=== PATIENT | male | born 1935 | race African-American/Black ===

== ENCOUNTER 2021-01-19 13:26 | Inpatient (IN) | payer MEDICARE, OTHER ==
[2021-01-19] VITALS (12 sets, daily range): BP systolic 118–144; BP diastolic 60–83
[~2021-01-19] VITALS: Ht 175.3 cm; Wt 75.4 kg
[~2021-01-19 13:26] MED LIST: BABY81CH OR; FISH1000 PO; FLOM0.4C39 PO; GLYB1TAB29 PO; HYDR25TA6 PO; LISI40TA PO; LOPR50TA OR; METF500T4 PO; METOPROLOL TARTRATE PO; MULTIVIT PO; PERC5TAB8 OR; PLAV75TA2 PO; PROS5TAB PO; TRAM50TA2 PO; ZOCO40TA OR
--- OUTSIDE RECORDS SUMMARY | 2021-01-19 13:30 | CCD ---
Author Author [facility] Address Unknown Phone Unavailable Support Name Relationship Address Phone RE Next Of Kin Unknown Unavailable DREAD COLES Next Of Kin [address] [place] [address] INDERJIT COLES Next Of Kin [address] [place] [address] Re-disclosure Warning The records that you are about to access may contain information from federally-assisted alcohol or drug abuse programs. If such information is present, then the following federally mandated warning applies: This information has been disclosed to you from records protected by federal confidentiality rules (42 CFR part 2). The federal rules prohibit you from making any further disclosure of this information unless further disclosure is expressly permitted by the written consent of the person to whom it pertains or as otherwise permitted by 42 CFR part 2. A general authorization for the release of medical or other information is NOT sufficient for this purpose. The Federal rules restrict any use of the information to criminally investigate or prosecute any alcohol or drug abuse patient.The records that you are about to access may contain highly sensitive health information, the redisclosure of which is protected by Article 27-F of the [facility] Public Health law. If you continue you may have access to information: Regarding HIV / AIDS; Provided by facilities licensed or operated by the [facility] Office of Mental Health; or Provided by the [facility] Office for People With Developmental Disabilities. If such information is present, then the following [facility] mandated warning applies: This information has been disclosed to you from confidential records which are protected by state law. State law prohibits you from making any further disclosure of this information without the specific written consent of the person to whom it pertains, or as otherwise permitted by law. Any unauthorized further disclosure in violation of state law may result in a fine or residential sentence or both. A general authorization for the release of medical or other information is NOT sufficient authorization for further disc losure. Medications No Information Insurance Providers Payer name Policy type / Coverage type Policy ID Covered democrat ID Covered democrat's relationship to escobar Policy Escobar Plan Information FOR LIFE [id number] MEDICARE [id number] A Problems, Conditions, and Diagnoses No Information Surgeries/Procedures No Information Results No Information Social History No Information
[2021-01-19 14:11] LABS: VENOUS HCO3 11.6 MEQ/L (23.0-27.0); VENOUS O2 SATURATION 76.2 % (60.0-80.0); VENOUS PARTIAL PRESSURE CO2 30.1 mmHg (38.0-50.0); VENOUS PARTIAL PRESSURE O2 53.2 mmHg (30.0-50.0); VENOUS PH 7.203 UNITS (7.330-7.430); VENOUS STANDARD HCO3 12.2 MEQ/L; VENOUS TOTAL CO2 12.5 MEQ/L (24.0-28.0)
[2021-01-19 14:20] LABS: BASO % 0.3 % (0.0-1.0); EOS % 0.1 % (0.0-3.0); LYMPH # 0.5 10^3/uL (1.5-5.0); LYMPH % 6.2 % (24.0-44.0); MEAN CORPUSCULAR HEMOGLOBIN 17.6 pg (27.0-33.0); MEAN CORPUSCULAR HGB CONC 23.9 g/dl (32.0-36.5); MEAN CORPUSCULAR VOLUME 73.4 fl (80.0-96.0); MONO # 0.3 10^3/uL (0.0-0.8); MONO % 4.5 % (2.0-8.0); NEUTROPHILS # 6.5 10^3/uL (1.5-8.5); NEUTROPHILS % 88.4 % (36.0-66.0); PLATELET COUNT, AUTOMATED 335 10^3/uL (150-450); RED BLOOD COUNT 2.56 10^6/uL (4.30-6.10); WHITE BLOOD COUNT 7.3 10^3/uL (4.0-10.0)
[2021-01-19 14:21] LABS: HEMATOCRIT 18.8 % (42.0-52.0); HEMOGLOBIN 4.5 g/dl (13.5-17.5)
[2021-01-19 14:47] LABS: ALBUMIN 2.7 GM/DL (3.2-5.2); BILIRUBIN,DIRECT 0.2 MG/DL (0.0-0.2); BILIRUBIN,TOTAL 0.6 MG/DL (0.2-1.0); CALCIUM LEVEL 8.3 MG/DL (8.8-10.2); CREATININE FOR GFR 1.93 MG/DL (0.70-1.30); GLOMERULAR FILTRATION RATE 43.1 (>35); POTASSIUM SERUM 4.6 MEQ/L (3.5-5.1); TOTAL PROTEIN 6.9 GM/DL (6.4-8.2)
--- NOTE | 2021-01-19 14:55 | REP ---
INDICATION: DYSPNEA/COUGH. COMPARISON: 01/20/2011. TECHNIQUE: Single portable AP view of the chest was performed. FINDINGS: There is possible mild left retrocardiac atelectasis/infiltrate. The right lung is clear. The heart is upper limits of normal in size. The mediastinal silhouette is unremarkable. IMPRESSION: Possible mild left retrocardiac atelectasis/infiltrate. <Electronically signed by Ronal Sher > 01/19/21 [id number]
--- NOTE | 2021-01-19 15:22 | REP ---
INDICATION: gi bleed. COMPARISON: None. TECHNIQUE: Standard helical technique without intravenous or oral bowel preparatory contrast administration FINDINGS: The lung bases show bilateral pleural effusions and a possible right lower lobe nodule measuring 1 cm. This could represent focal atelectasis. There is respiratory motion artifact obscuring the lung bases. Respiratory motion artifact obscures the fine detail on all upper abdominal images. There is cholelithiasis. The liver and spleen are unremarkable. The pancreas and adrenal glands are unremarkable. The left kidney is unremarkable. In the interpolar region of the right kidney there is a 2.3 cm sized mixed density appearing nodule. This is obscured by respiratory motion artifact. The abdominal aorta and para-aortic regions are within normal limits for the patient's age. There is calcific atherosclerotic change involving the aorta. No gross abnormality is seen involving the bowel loops or the mesenteries. There is marked appearing prostatomegaly. The urinary bladder is empty. Bone window technique throughout the examination shows chronic spinal degenerative changes and discogenic changes. IMPRESSION: 1. Bilateral pleural effusions other lung base findings as described above. 2. Cholelithiasis. 3. Right renal lesion as described above. Renal mass cannot be ruled out. Pre and postcontrast enhanced dedicated renal CT with a limb in a short of respiratory motion artifact is recommended. 4. Rather marked appearing prostatomegaly. 5. Other findings as described above. <Electronically signed by Ag Freeman > 01/19/21 [id number]
[2021-01-19 15:29] LABS: RSV AMPLIFICATION NEGATIVE (NEGATIVE)
--- NOTE | 2021-01-19 15:37 | ECGEPIP ---
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
[2021-01-19] MEDS ORDERED: PANTOPRAZOLE 40MG VIAL (C9113 PER 1) IV ONE (15:40)
[2021-01-19] MEDS ORDERED: ASPI81TA26 PO (15:49)
[2021-01-19] MEDS ORDERED: GLUCOSE 4GM CHEW TABLET PO PRN (15:55)
[2021-01-19] MEDS ORDERED: FUROSEMIDE 20MG/2ML VIAL (J1940) IV ONE (15:55)
[2021-01-19] MEDS ORDERED: GLUCAGON INJ 1MG VIAL SC PRN (15:55)
[2021-01-19] MEDS ORDERED: DEXTROSE 50% 50 ML SYRINGE IV PRN (15:55)
[2021-01-19] MEDS ORDERED: HOME MED LIST COMPLETE! XX SCH (16:15)
--- NOTE | 2021-01-19 16:30 | HPEPDOC ---
[facility] Medical History & Physical Date of Admission Jan 19, 2021 Date of Service: Jan 19, 2021 Attending Physician: DEISY GRANADOS DO History and Physical CHIEF COMPLAINT: Shortness of breath HISTORY OF PRESENT ILLNESS: Patient is an 85-year-old male presented to the hospital with a chief complaint shortness of breath. Patient states that he has been having difficulty walking to and from the bathroom as he becomes more more short of breath. Patient states that he has noticed this over the past few days as it is been getting worse and worse. Patient denies any orthopnea or paroxysmal nocturnal dyspnea. Patient states that over the past month or so he has noticed loose black stools. Patient says that prior to this he noticed that the stool has become narrower in caliber. Patient states that this been going on for quite some time. Patient has not seen a medical provider in at least 7 y ears according the patient. Patient was in his usual state of health until about 2 weeks ago when he started noticing the shortness of breath. Patient denies a cough. Patient denies any chest pain. Currently, the patient just says he feels cold and is shivering. Patient initially only states that he has diabetes although in looking back in the medical record, patient apparently had an myocardial infarction and had a bare-metal stent placed before 2010 PAST MEDICAL HISTORY: 1. Type 2 diabetes mellitus, not currently on medication. 2. History of hypertension, not currently on medication. 3. History of myocardial infarction with bare-metal stent placed, now longer on medication. 4. BPH 5. Coronary artery disease PAST SURGICAL HISTORY: 1. Left hand digital amputation with placement. 2. Blepharoplasty. 3. Right rotator cuff repair. 4. Left eye surgery SOCIAL HISTORY: Patient states that currently a pack of cigarettes would last about a month however, patient was a heavy smoker for about 50 years prior to this. Patient used to drink alcohol heavily but has not recently been drinking alcohol. Patient denies illicit drug use. Patient worked in the for most of his life and is currently retired. FAMILY HISTORY: Patient states he does not know of any diseases that run in his family. Patient says "I am the diabetes man" when asked if diabetes or other disease runs in his family. ALLERGIES: Please see below. REVIEW OF SYSTEMS: General: Patient denies fevers HEENT: Patient denies headaches Cardiovascular: Patient denies chest pain Respiratory: Patient reports shortness of breath as above GI: Patient denies abdominal pain, nausea, vomiting, diarrhea : Patient denies increased frequency or pain with urination Extremities: Patient reports swelling in his lower extremities bilaterally that has come on in the last 2 weeks Neurological: Patient denies numbness or tingling in legs Skin: Patient denies any new rashes or lesions. Hematologic: Patient denies any easy bruising. Lymphatic: Patient denies any lumps lumps or bumps in neck, axilla, or groin HOME MEDICATIONS: Please see below. PHYSICAL EXAMINATION: VITAL SIGNS: Temperature 96.2, pulse 98, respiratory rate 18, blood pressure 125/80, pulse oximetry 100% on 3 L via nasal cannula General: Alert and oriented male patient who was laying in bed when I walked in the room. Patient appeared cold as he was shivering but this improved after warm blankets were applied to the patient. Patient did not appear to be in any acute distress. HEENT: Normocephalic, atraumatic, moist mucous membranes. Neck: No lymphadenopathy or thyromegaly Cardiac: Regular rate and rhythm, no murmurs, normal S1, normal S2 Pulm: Clear to auscultation bilaterally. No wheezes, rhonchi, rales Abd: Nondistended, nontender to palpation, normal bowel sounds Ext: No edema bilateral lower extremities Neuro: Patient was able to move all 4 extremities on command and reported equal sensation light touch in all 4 extremities. Skin: Skin of the head, neck, upper and lower extremities was examined did not show any evidence of rash or wounds. LABORATORY DATA: See below. IMAGING: Chest x-ray performed on January 19, 2021 is reported to show possible mild left retrocardiac atelectasis/infiltrate. CT of the abdomen and pelvis performed without contrast on January 19, 2021 is reported to show bilateral pleural effusions other lung base findings described as possible right lower lobe nodule measuring 1 cm. This could represent focal atelectasis. Cholelithiasis. Right renal lesion described as a 2.3 cm size mi xed density appearing nodule. Renal mass cannot be ruled out. Pre and post contrast-enhanced dedicated renal CT with a limb in a short of respiratory motion artifact is recommended. Rather marked appearing prostamegaly MICROBIOLOGY: Please see below. ASSESSMENT: 85-year-old male patient who presented to the emergency department shortness of breath was found to have acute blood loss anemia secondary to GI bleeding. . PLAN: 1. Acute blood loss anemia secondary to GI bleeding. Patient has a hemoglobin of 4.5. Patient had Hemoccult positive stool in the emergency department. Patient will receive 3 units of blood and we will check the patient's hemoglobin every 6 hours. Patient will receive IV Lasix between the first and second dose as the patient has a history of an SD and may have history of heart failure. Nursing order has been placed to contact physician test kitchen home economist in between second and third unit of blood in order to see the patient needs more Lasix prior to starting the third. Patient will be placed on IV Protonix and gastroenterology has been consulted. Patient will be held n.p.o. at this time. 2. Gastrointestinal bleeding. Patient has melena for 1 month. Patient may have an upper GI bleed so patient will have IV Protonix and will be held n.p.o. Gastroenterology has been consulted and I appreciate Dr. Pandya's help treating the patient. 3. Elevated troponin. Patient has a mild elevation on [id number] troponins. We will trend these but this is most likely secondary to the patient's profound anemia. Patient denies having any chest pain at this time. There were no EKG changes. 4. Acute kidney injury. Patient does not have a known history of kidney disease. Patient's creatinine is elevated. This may be secondary to dehydration and/or from the patient's profound anemia. We will continue to monitor the patient's renal function. We will provide gentle diuresis with the patient as more fluid is added with the blood. 5. Shortness of breath. Patient shortness of breath may be multifactorial secondary to acute blood loss anemia combined with the patient's possible pleural effusions representing heart failure exacerbation. Patient will be diuresed as he receives blood. 6. Peripheral edema. Patient states he just had peripheral edema developed in the last few weeks. With the fact that the patient has pleural effusions, echocardiogram has been ordered and will need to be followed up in the a.m. 7. Type 2 diabetes. Patient will be placed on sliding scale insulin. Patient appears to have been on Metformin in the past but has not seen a physician for 7 years. 8. History of hypertension. Patient will need close following of his blood pressure and this will be treated as necessary. 9. Right renal lesion seen on abdominal and pelvis CT. Unfortunately, due to the patient's acute kidney injury, patient cannot receive IV contrast at this time. This may be something that cannot be follow-up later in his hospitalization as the patient's kidney function improves or outpatient. 10. Possible right lower lobe nodule measuring 1 cm. This was found on a CT of the abdomen pelvis. This may represent focal atelectasis. DVT prophylaxis: Mechanical due to GI bleeding CODE STATUS: Full code Disposition: Patient will be admitted to the medical surgical floor. I expect the patient to be discharged after greater than or equal to 2 midnights. Vital Signs Vital Signs Date Time Temp Pulse Resp B/P (MAP) Pulse Ox O2 Delivery O2 Flow Rate FiO2 01/19/21 16:04 96.2 98 18 125/60 100 Nasal Cannula 3.0 Laboratory Data Labs 24H Laboratory Tests 2 01/19/21 13:45: Immature Granulocyte % (Auto) 0.5, Neutrophils (%) (Auto) 88.4H, Lymphocytes (%) (Auto) 6.2L, Monocytes (%) (Auto) 4.5, Eosinophils (%) (Auto) 0.1, Basophils (%) (Auto) 0.3, Neutrophils # (Auto) 6.5, Lymphocytes # (Auto) 0.5L, Monocytes # (Auto) 0.3, Eosinophils # (Auto) 0.0, Basophils # (Auto) 0.0, Nucleated Red Blood Cells % (auto) 1.2H, Anion Gap 21H, Glomerular Filtration Rate 43.1, Calcium Level 8.3L, Total Bilirubin 0.6, Direct Bilirubin 0.2, Aspartate Amino Transf (AST/SGOT) 15, Alanine Aminotransferase (ALT/SGPT) 14, Alkaline Phosphatase 84, Total Protein 6.9, Albumin 2.7L, Albumin/Globulin Ratio 0.6 01/19/21 14:00: Blood Gas Bicarbonate Standard 12.2, Venous Blood pH 7.203L, Venous Blood Partial Pressure CO2 30.1L, Venous Blood Partial Pressure O2 53.2H, Venous Blood Total Carbon Dioxide 12.5L, Venous Blood HCO3 11.6L, Venous Blood Oxygen Saturation 76.2, Venous Blood Base Excess -15.0L, Coronavirus (COVID-19)(PCR) NEGATIVE, Influenza Type A (RT-PCR) NEGATIVE, Influenza Type B (RT-PCR) NEGATIVE, Respiratory Syncytial Virus (PCR) NEGATIVE 01/19/21 14:08: POC Troponin I (Misc) 0.14H CBC/BMP Laboratory Tests 01/19/21 13:45 Microbiology Microbiology 01/19/21 Blood Culture, Received Pending Home Medications Scheduled Aspirin (Aspirin EC) 81 Mg Tablet.dr, 81 MG PO DAILY Allergies Coded Allergies: No Known Allergies (Verified , 01/18/11) A-FIB/CHADSVASC A-FIB History Current/History of A-Fib/PAF?: No DEISY GRANADOS DO Jan 19, 2021 16:30
[2021-01-19 16:53] LABS: INR 1.99
[2021-01-19 16:54] LABS: PARTIAL THROMBOPLASTIN TIME 29.8 SECONDS (25.9-37.0)
--- OUTSIDE RECORDS SUMMARY | 2021-01-19 16:57 | CCD ---
Author Author [facility] Address Unknown Phone Unavailable Support Name Relationship Address Phone RE Next Of Kin Unknown Unavailable DREAD COLES Next Of Kin [address] [place] [address] INDERJIT COLES Next Of Kin [address] [place] [address] Re-disclosure Warning The records that you are [...] is protected by Article 27-F of the [facility] Public Health law. If you continue you may have access to information: Regarding HIV / AIDS; Provided by facilities licensed or operated by the [facility] Office of Mental Health; or Provided by the [facility] Office for People With Developmental Disabilities. If such information is present, then the following [facility] mandated warning applies: This information has been [...] law may result in a fine or skilled nursing sentence or both. A general authorization for the release of medical or other information is NOT sufficient authorization for further disc losure. Medications No Information Insurance Providers Payer name Policy type / Coverage type Policy ID Covered republican ID Covered republican's relationship to escobar Policy Escobar Plan Information FOR LIFE [id number] MEDICARE [id number] A Problems, Conditions, and Diagnoses No Information Surgeries/Procedures No Information Results No Information Social History No Information
--- NOTE | 2021-01-19 17:30 | CR.PDOC ---
General Date of Consultation: Jan 19, 2021 Referring Provider: DEISY GRANADOS DO Primary Care Physician: A Consultation REASON FOR CONSULTATION/CHIEF COMPLAINT: . HISTORY OF PRESENT ILLNESS: [progressive dyspnea, has black stools for 1 month. He has lost 20-30 lbs over past 6 months. No abdominal pain, no nausea, no hematemesis.]. ALLERGIES: Please see below. HOME MEDICATIONS: Please see below. [id number] mg q day PAST SURGICAL HISTORY: 1. [coronary stenting, rotator cuff repair,]. 2. . PAST MEDICAL HISTORY: 1. [Prostate disease,NIDDM,Anemia] 2. FAMILY HISTORY: Father: [N/C] Mother: [N/C] Hereditary Diseases: [N] Unexpected deaths due to medical reasons: [N] SOCIAL HISTORY: Marital status and/or living arrangements: Tobacco use: ETOH: [N] Other relevant social factors: [N] REVIEW OF SYSTEMS: CONSTITUTIONAL: [Nontoxic, thin male, NAD]. HEENT: [Neg]. CARDIOVASCULAR: [SHAFFER x 1 month]. RESPIRATORY: [SHAFFER]. GENITOURINARY: [Dysuria]. MUSCULOSKELETAL: [Backpainb]. GASTROINTESTINAL: [As HPI]. SKIN: [Neg]. NEUROLOGICAL: [Neg]. PSYCHIATRIC: [Neg]. ENDOCRINE: [Neg]. HEMATOLOGIC/LYMPHATIC: [Neg]. ALLERGIC/IMMUNOLOGIC: . PHYSICAL EXAMINATION: VITAL SIGNS: Please see below. GENERAL APPEARANCE: [AAOx3, NAD,Not toxic, comfortably in bed]. HEENT: [Normal]. RESPIRATORY: [Coarse/neg ronchi]. CARDIOVASCULAR: [Tach, no M]. ABDOMEN: [Soft,NT good BS]. EXTREMITIES: [neg for edema. pulses palp]. NEUROLOGICAL: [AAOx3, EOMI, moves all extremities equally/bilaterally]. PSYCHIATRIC: [No distress]. LABORATORY DATA: Please see below. ASSESSMENT/PLAN: 1. [Weight loss]. 2. [Microcytic Anemia-severe/ Symptomatic]. 3. Melena/maroon stool. REC: IVF,O2,Transfuse to Hb near/above 10 Prep 01/20/21 early am for Colonoscopy (and EGD) in later afternoon. Vital Signs/I&O Vital Signs Date Time Temp Pulse Resp B/P (MAP) Pulse Ox O2 Delivery O2 Flow Rate FiO2 01/19/21 16:49 96.4 97 18 137/63 100 Nasal Cannula 3.0 Laboratory Data Labs 24H Laboratory Tests 2 01/19/21 13:45: Immature Granulocyte % (Auto) 0.5, Neutrophils (%) (Auto) 88.4H, Lymphocytes (%) (Auto) 6.2L, Monocytes (%) (Auto) 4.5, Eosinophils (%) (Auto) 0.1, Basophils (%) (Auto) 0.3, Neutrophils # (Auto) 6.5, Lymphocytes # (Auto) 0.5L, Monocytes # (Auto) 0.3, Eosinophils # (Auto) 0.0, Basophils # (Auto) 0.0, Nucleated Red Blood Cells % (auto) 1.2H, Prothrombin Time 23.0H, Prothromb Time International Ratio 1.99, Activated Partial Thromboplast Time 29.8, Anion Gap 21H, Glomerular Filtration Rate 43.1, Calcium Level 8.3L, Total Bilirubin 0.6, Direct Bilirubin 0.2, Aspartate Amino Transf (AST/SGOT) 15, Alanine Aminotransferase (ALT/SGPT) 14, Alkaline Phosphatase 84, Total Protein 6.9, Albumin 2.7L, Albumin/Globulin Ratio 0.6 01/19/21 14:00: Blood Gas Bicarbonate Standard 12.2, Venous Blood pH 7.203L, Venous Blood Partial Pressure CO2 30.1L, Venous Blood Partial Pressure O2 53.2H, Venous Blood Total Carbon Dioxide 12.5L, Venous Blood HCO3 11.6L, Venous Blood Oxygen Saturation 76.2, Venous Blood Base Excess -15.0L, Coronavirus (COVID-19)(PCR) NEGATIVE, Influenza Type A (RT-PCR) NEGATIVE, Influenza Type B (RT-PCR) NEGATIVE, Respiratory Syncytial Virus (PCR) NEGATIVE 01/19/21 14:08: POC Troponin I (Misc) 0.14H CBC/BMP Laboratory Tests 01/19/21 13:45 Microbiology Microbiology 01/19/21 Blood Culture, Received Pending Allergies Coded Allergies: No Known Allergies (Verified , 01/18/11) Home Medications Scheduled Aspirin (Aspirin EC) 81 Mg Tablet., 81 MG PO DAILY, (Reported) SUKHI SALAZAR MD Jan 19, 2021 17:30
[2021-01-19] MEDS: HumaLOG INSULIN (NovoLOG) PER UNIT SC SCH (18:00)
[2021-01-19] MEDS ORDERED: MOM 30ML SUSPENSION UDC PO ONE (18:00)
[2021-01-19 20:05] LABS: HEMATOCRIT 23.7 % (42.0-52.0); MEAN CORPUSCULAR HGB CONC 27.4 g/dl (32.0-36.5); MEAN CORPUSCULAR VOLUME 76.7 fl (80.0-96.0); PLATELET COUNT, AUTOMATED 239 10^3/uL (150-450); RED BLOOD COUNT 3.09 10^6/uL (4.30-6.10); WHITE BLOOD COUNT 9.2 10^3/uL (4.0-10.0)
[2021-01-19 20:26] LABS: HEMOGLOBIN 6.5 g/dl (13.5-17.5)
[2021-01-19 20:50] LABS: MB/CK RELATIVE INDEX 8.79 (< OR =4)
[2021-01-19] MEDS ORDERED: CARVedilol 3.125 MG TAB PO ONE (22:15)
[2021-01-19] MEDS ORDERED: ATORVASTATIN 20 MG TAB PO ONE (22:15)
--- NOTE | 2021-01-19 22:56 | IPNPDOC ---
Text Note Date of Service The patient was seen on 01/19/21. NOTE Alerted by nursing staff at approx 2130 that patient's troponin had acutely increased on poc from 0.14 on presentation to 1.77. High sensitivity troponin was also noted to be elevated to >1000 one hour before this. Saw and examined patient at this time who complained of no chest discomfort. Patient complained of continued shortness of breath, but stated that this symptom had not changed in quality or severity. Physical exam performed at this time unremarkable. Stat EKG was ordered which showed some t wave inversions in leads V4-5. At this time i contacted wood preparation supervisor diet technician registered, Dr. Emmanuel, and discussed the case and findings. At this time, it is still felt as though this troponin elevation is d/t demand ischemia i/s/o severe acute anemia. Dr. Emmanuel recommended beta asfi and statin therapy as well as f/u echo as it would be unwise to begin heparin drip in a patient with suspected bleed and such severe anemia. Assistance from Dr. Emmanuel is greatly appreciated. #Elevated troponins - Likely type II event - continue to trend q6 - echo ordered for am - begin coreg bid - begin atorvastatin qhs - monitor symptoms VS,Fishbone, I+O VS, Fishbone, I+O Laboratory Tests 01/19/21 13:45 01/19/21 19:52 Vital Signs Date Time Temp Pulse Resp B/P (MAP) Pulse Ox O2 Delivery O2 Flow Rate FiO2 01/19/21 22:35 97.4 81 16 131/63 100 Nasal Cannula 3.0 BEBETO ELMORE Jan 19, 2021 22:56
[2021-01-20] VITALS (9 sets, daily range): BP systolic 80–147; BP diastolic 55–73
[2021-01-20] MEDS ORDERED: FUROSEMIDE 20MG/2ML VIAL (J1940) IV ONE
[2021-01-20 01:57] LABS: CK-MB VALUE MASS 35.6 NG/ML (<3.6); MB/CK RELATIVE INDEX 12.62 (< OR =4)
[2021-01-20] MEDS ORDERED: LR 1,000 ML IV ONE (03:15)
[2021-01-20] MEDS ORDERED: LR 1,000 ML IV SCH (03:15)
[2021-01-20] MEDS ORDERED: D5W/LR 1,000 ML IV SCH (03:55)
--- NOTE | 2021-01-20 04:00 | IPNPDOC ---
Text Note Date of Service The patient was seen on 01/20/21. NOTE time of service 330pm 's BP dropped to 84/62 At the time of my assessment denied having any chest pain or dyspnea and added that his BP usually drops when he goes to sleep Orthostats were negative. #Hypotension: give 1L bolus / place hold parameters on Coreg #High Anion Gap Metabolic Acidosis with concurrent Non-anion gap metabolic acidosis: follow up urine electrolytes to calculate Urine anion gap / f/u UA to determine if he has ketones which can caus AG metabolic acidosis / check lactic acid / start empiric Zosyn for suspected GI infection VS,Fishbone, I+O VS, Fishbone, I+O Laboratory Tests 01/19/21 13:45 01/19/21 19:52 KIMMY HOOVER MD Jan 20, 2021 04:00
[2021-01-20 04:37] LABS: MEAN CORPUSCULAR HEMOGLOBIN 22.9 pg (27.0-33.0); MEAN CORPUSCULAR HGB CONC 28.8 g/dl (32.0-36.5); MEAN CORPUSCULAR VOLUME 79.7 fl (80.0-96.0); PLATELET COUNT, AUTOMATED 202 10^3/uL (150-450); RED BLOOD COUNT 4.14 10^6/uL (4.30-6.10); WHITE BLOOD COUNT 8.2 10^3/uL (4.0-10.0)
[2021-01-20 04:38] LABS: HEMOGLOBIN 9.5 g/dl (13.5-17.5)
[2021-01-20 05:00] LABS: CALCIUM LEVEL 8.5 MG/DL (8.8-10.2); CREATININE FOR GFR 2.01 MG/DL (0.70-1.30); GLOMERULAR FILTRATION RATE 41.1 (>35); MAGNESIUM LEVEL 2.1 MG/DL (1.8-2.4); POTASSIUM SERUM 4.8 MEQ/L (3.5-5.1)
[2021-01-20] MEDS ORDERED: POLYETHYLENE GLYCOL (MIRALAX) 238GM BOTTLE PO ONE (05:00)
[2021-01-20 05:24] LABS: CK-MB VALUE MASS 35.6 NG/ML (<3.6); MB/CK RELATIVE INDEX 10.89 (< OR =4)
[2021-01-20] MEDS: PIPERACILLIN/TAZOBACTAM SOD 3.375 GM in D5W MINI-BAG PLUS 50 ML IV SCH ×4 (05:37→22:44)
[2021-01-20] MEDS: HumaLOG INSULIN (NovoLOG) PER UNIT SC SCH ×5 (06:53→23:22)
[2021-01-20] MEDS: PANTOPRAZOLE 40MG VIAL (C9113 PER 1) IV SCH ×2 (08:17→20:08)
--- NOTE | 2021-01-20 08:35 | REP ---
INDICATION: Hypotension COMPARISON: 01/19/2021 TECHNIQUE: Portable AP view of the chest FINDINGS: The mediastinum and cardiac silhouette are stable and within normal limits for portable technique. The lung callahan demonstrate chronic appearing changes without focal consolidation. The moderate layering effusions identified on recent CT examination are not visible by portable x-ray. No pneumothorax.. IMPRESSION: No obvious focal consolidation. Effusions identified on recent chest CT are not visible by current portable x-ray. <Electronically signed by Jasson Lizarraga > 01/20/21 [id number]
--- NOTE | 2021-01-20 08:38 | ECGEPIP ---
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
--- NOTE | 2021-01-20 08:39 | ECGEPIP ---
[facility] Test Date: 2021-01-20 Pat Name: RENETTA COLES Department: Room: [place] [address] Gender: Male Clinical Specialty Rep: RADHA : 1935 Requested By: EVERT ALEJANDRE Order Number: [id number] Reading MD: Pete Calero Measurements Intervals Pike Rate: 73 P: IA: 176 QRS: -69 QRSD: 102 T: 150 QT: 442 QTc: 486 Interpretive Statements Normal sinus rhythm Left axis deviation Inferior infarct , age undetermined Low QRS complex voltage in the limb leads Nonspecific ST-T wave abnormalities Prolonged QTc interval Similar to tracing done 01-19-21 Electronically Signed on 01-20-2021 8:39:45 EST by Pete Calero
[2021-01-20 08:53] LABS: CK-MB VALUE MASS 36.3 NG/ML (<3.6); MB/CK RELATIVE INDEX 10.28 (< OR =4)
[2021-01-20] MEDS ORDERED: PNEUMOCOCCAL VACCINE 0.5ML SYRINGE (PNEUMOVAX 23) IM ONE (09:00)
[2021-01-20] MEDS ORDERED: FLUBLOK(EGG FREE)(QUAD)INFLUENZA VACC 0.5ML SYRINGE 18YRS & OLDER IM ONE (09:00)
[2021-01-20] MEDS: CARVedilol 3.125 MG TAB PO SCH ×2 (09:00→20:01)
[2021-01-20 10:04] LABS: HEMATOCRIT 30.5 % (42.0-52.0); MEAN CORPUSCULAR HEMOGLOBIN 22.4 pg (27.0-33.0); MEAN CORPUSCULAR HGB CONC 29.5 g/dl (32.0-36.5); MEAN CORPUSCULAR VOLUME 75.9 fl (80.0-96.0); PLATELET COUNT, AUTOMATED 207 10^3/uL (150-450); RED BLOOD COUNT 4.02 10^6/uL (4.30-6.10); WHITE BLOOD COUNT 10.7 10^3/uL (4.0-10.0)
[2021-01-20 10:36] LABS: ABG BASE EXCESS -5.2 (-2.0-2.0); ABG HCO3 18.6 MEQ/L (22.0-26.0); ABG O2 SATURATION 94.2 % (95.0-99.0); ABG PARTIAL PRESSURE O2 73.9 mmHg (75.0-100.0); ABG STANDARD HCO3 20.1 MEQ/L (22.0-26.0); ABG TOTAL CO2 19.5 MEQ/L (23.0-31.0)
--- NOTE | 2021-01-20 10:57 | IPNPDOC ---
Text Note Date of Service The patient was seen on 01/20/21. NOTE Subjective: Patient is an 85-year-old -[place] male with a PMHx of CAD s/p stent (Hx of AK), HTN, NIDDM2, BPH who presented to the ER on 01/19 for shortness of breath with exertion over the last several days. Patient has reported that over the course of 1 month he's been noting dark colored stools. On arrival he was noted to have a hemoglobin of 4.5. Patient was admitted to the hospital service for further evaluation and treatment. Gastroenterology was called on consultation. Patient was seen and examined at the bedside. Patient is seen laying on his side, appears relatively comfortable. He denies any chest pain, shortness of breath or palpitations. Has not experience any nausea, vomiting, abdominal pain or any dark-colored stools. Patient will be transferred to the PCU for further monitoring given his elevated troponin levels. Objective: Vitals (See below) General: Lying in bed, appears comfortable, AAOx3 HEENT: NC, AT CVS: RRR, +S1S2 Lungs: Fair air entry b/l, no wheezing, rales or rhonchi Abdomen: Soft, ND, NT Extremities: 2+ pitting edema of feet, - Calf tenderness Imaging: CXR 01/19: Possible mild left retrocardiac atelectasis/infiltrate. CT abdomen / pelvis 01/19: 1. Bilateral pleural effusions other lung base findings as described above. 2. Cholelithiasis. 3. Right renal lesion as described above. Renal mass cannot be ruled out. Pre and postcontrast enhanced dedicated renal CT with a limb in a short of respiratory motion artifact is recommended. 4. Rather marked appearing prostatomegaly. 5. Other findings as described above. CXR 01/20: No obvious focal consolidation. Effusions identified on recent chest CT are not visible by current portable x- ray. Assessment and plan: Acute blood loss anemia / Symptomatic anemia - likely 2/2 GI bleed - suspected 2/2 upper - Clinically patient presented with SOB on exertion; currently, patient has reported improvement of his breathing - Hemoglobin on admission of 4.5; has improved after transfusions - s/p 4 units PRBC - Will continue to follow H&H trend Suspected GI bleed - c/w Protonix - GI on consultation; appreciate their input - endoscopies have been postponed secondary to elevated troponin Elevated troponin - likely 2/2 demand ischemia 2/2 above, less likely 2/2 NSTEMI - Patient denies any chest pain, shortness breath or palpitations - He reports a history of AK/CAD s/p stent - EKG reviewed - Will trend troponin - c/w Atorvastatin / Carvedilol - Unfortunately the patient is not a candidate to receive a full anticoagulation therapy given his recent severe anemia LE edema / Pleural effusions - likely 2/2 CHF exacerbation - Patient has a history of AK - Physical exam does reveal some signs of fluid overload - s/p Furosemide - Will check ECHO - c/w strict ins/outs, daily weights, NADIYA - Cr baseline unclear; 2010 Cr was 1.4 - Will avoid nephrotoxic medications - Will repeat lab work HTN - BP well controlled; borderline low - Will adjust Carvedilol hold parameters NIDDM2 - c/w ISS R renal lesion - Will need outpatient follow-up for repeat imaging RLL lung nodule - Will need outpatient follow-up for repeat imaging GI prophylaxis - See above DVT prophylaxis - c/w TEDs/Sequentials Code status: - Full code Disposition: - Pending clinical improvement VS,Fishbone, I+O VS, Fishbone, I+O Laboratory Tests 01/19/21 13:45 01/19/21 19:52 01/20/21 04:19 01/20/21 09:43 Vital Signs Date Time Temp Pulse Resp B/P (MAP) Pulse Ox O2 Delivery O2 Flow Rate FiO2 01/20/21 09:00 72 94/54 01/20/21 04:46 97.4 99 Room Air 01/20/21 03:30 96 01/20/21 01:30 3.0 l I&O- Last 24 Hours up to 6 AM 01/20/21 06:00 Intake Total 2652 ml Output Total 150 ml Balance 2502 ml EVERT ALEJANDRE MD Jan 20, 2021 10:57
[2021-01-20 12:15] LABS: BASO % 0.2 % (0.0-1.0); EOS # 0.1 10^3/uL (0.0-0.5); HEMATOCRIT 31.5 % (42.0-52.0); HEMOGLOBIN 9.5 g/dl (13.5-17.5); LYMPH # 0.9 10^3/uL (1.5-5.0); LYMPH % 9.4 % (24.0-44.0); MEAN CORPUSCULAR HEMOGLOBIN 22.9 pg (27.0-33.0); MEAN CORPUSCULAR HGB CONC 30.2 g/dl (32.0-36.5); MEAN CORPUSCULAR VOLUME 75.9 fl (80.0-96.0); MONO # 0.8 10^3/uL (0.0-0.8); MONO % 8.7 % (2.0-8.0); NEUTROPHILS # 7.7 10^3/uL (1.5-8.5); NEUTROPHILS % 80.2 % (36.0-66.0); PLATELET COUNT, AUTOMATED 226 10^3/uL (150-450); RED BLOOD COUNT 4.15 10^6/uL (4.30-6.10); WHITE BLOOD COUNT 9.7 10^3/uL (4.0-10.0)
[2021-01-20 12:41] LABS: CALCIUM LEVEL 8.9 MG/DL (8.8-10.2); CREATININE FOR GFR 2.1 MG/DL (0.70-1.30); GLOMERULAR FILTRATION RATE 39.1 (>35); MAGNESIUM LEVEL 2.4 MG/DL (1.8-2.4); POTASSIUM SERUM 4.3 MEQ/L (3.5-5.1)
[2021-01-20 12:46] LABS: CK-MB VALUE MASS 33.9 NG/ML (<3.6); MB/CK RELATIVE INDEX 10.46 (< OR =4)
[2021-01-20 15:42] LABS: HEMATOCRIT 30.9 % (42.0-52.0); HEMOGLOBIN 9.4 g/dl (13.5-17.5); MEAN CORPUSCULAR HGB CONC 30.4 g/dl (32.0-36.5); MEAN CORPUSCULAR VOLUME 75.6 fl (80.0-96.0); PLATELET COUNT, AUTOMATED 199 10^3/uL (150-450); RED BLOOD COUNT 4.09 10^6/uL (4.30-6.10); WHITE BLOOD COUNT 9.5 10^3/uL (4.0-10.0)
[2021-01-20 16:08] LABS: CK-MB VALUE MASS 27.9 NG/ML (<3.6); MB/CK RELATIVE INDEX 10.37 (< OR =4)
[2021-01-20] MEDS: ATORVASTATIN 20 MG TAB PO SCH (20:08)
[2021-01-20 22:52] LABS: HEMOGLOBIN 8.6 g/dl (13.5-17.5); MEAN CORPUSCULAR HEMOGLOBIN 22.9 pg (27.0-33.0); MEAN CORPUSCULAR HGB CONC 29.7 g/dl (32.0-36.5); MEAN CORPUSCULAR VOLUME 77.1 fl (80.0-96.0); PLATELET COUNT, AUTOMATED 207 10^3/uL (150-450); RED BLOOD COUNT 3.76 10^6/uL (4.30-6.10); WHITE BLOOD COUNT 9.9 10^3/uL (4.0-10.0)
[2021-01-20 23:18] LABS: CK-MB VALUE MASS 14.6 NG/ML (<3.6); MB/CK RELATIVE INDEX 8.25 (< OR =4)
[2021-01-21] VITALS: BP 122/67
[2021-01-21] MEDS: PIPERACILLIN/TAZOBACTAM SOD 3.375 GM in D5W MINI-BAG PLUS 50 ML IV SCH ×4 (03:30→21:45)
[2021-01-21 04:00] VITALS: BP 128/71
[2021-01-21 04:05] LABS: POTASSIUM RANDOM URINE 42.8 MEQ/L
[2021-01-21 04:06] LABS: APPEARANCE, URINE CLEAR (CLEAR); BACTERIA, URINE AUTO NEGATIVE (NEGATIVE); BILIRUBIN, URINE AUTO NEGATIVE (NEGATIVE); BLOOD, URINE BLOOD NEGATIVE (NEGATIVE); COLOR, URINE YELLOW (YELLOW); GLUCOSE, URINE (UA) AUTO NEGATIVE (NEGATIVE); KETONE, URINE AUTO NEGATIVE (NEGATIVE); LEUKOCYTE ESTERASE, URINE AUTO NEGATIVE (NEGATIVE); NITRITE, URINE AUTO NEGATIVE (NEGATIVE); PROTEIN, URINE AUTO 2+ mg/dL (NEGATIVE); RBC, URINE AUTO 1 /HPF (0-3); SPECIFIC GRAVITY URINE AUTO 1.023 (1.002-1.035); SQUAMOUS EPITHELIAL CELL UR AU 1 /HPF (0-6); UROBILINOGEN, URINE AUTO 0.2 mg/dL (0.0-2.0); WBC, URINE AUTO 2 /HPF (0-3)
[2021-01-21 05:10] LABS: HEMATOCRIT 29.3 % (42.0-52.0); HEMOGLOBIN 8.7 g/dl (13.5-17.5); MEAN CORPUSCULAR HEMOGLOBIN 22.9 pg (27.0-33.0); MEAN CORPUSCULAR HGB CONC 29.7 g/dl (32.0-36.5); MEAN CORPUSCULAR VOLUME 77.1 fl (80.0-96.0); PLATELET COUNT, AUTOMATED 213 10^3/uL (150-450); WHITE BLOOD COUNT 9.9 10^3/uL (4.0-10.0)
[2021-01-21 05:35] LABS: CALCIUM LEVEL 8.2 MG/DL (8.8-10.2); CREATININE FOR GFR 2.12 MG/DL (0.70-1.30); GLOMERULAR FILTRATION RATE 38.7 (>35); MAGNESIUM LEVEL 2.1 MG/DL (1.8-2.4); POTASSIUM SERUM 3.6 MEQ/L (3.5-5.1)
[2021-01-21 05:50] LABS: CK-MB VALUE MASS 9.4 NG/ML (<3.6); MB/CK RELATIVE INDEX 7.18 (< OR =4)
[2021-01-21 08:02] VITALS: BP 144/78
[2021-01-21] MEDS ORDERED: ACETAMINOPHEN TAB 650MG DOSE (2X325MG) PO PRN (09:45)
--- NOTE | 2021-01-21 09:49 | IPNPDOC ---
Text Note Date of Service The patient was seen on 01/21/21. NOTE Subjective: Patient is an 85-year-old -Citizen Of [place] male with a PMHx of CAD s/p stent (Hx of MS), HTN, NIDDM2, BPH who presented to the ER on 01/19 for shortness of breath with exertion over the last several days. Patient has reported that over the course of 1 month he's been noting dark colored stools. On arrival he was noted to have a hemoglobin of 4.5. Patient was admitted to the hospital service for further evaluation and treatment. Gastroenterology was called on consultation. Patient was seen and examined at the bedside. Patient reports that he has had an uneventful evening. He denies any nausea, vomiting, chest pain, or palpitations. He reports mild shortness of breath with a mild cough that started yesterday. Denies any abdominal pain, diarrhea, or urinary discomfort. He reports that he has not had any bowel movements since yesterday. Objective: Vitals (See below) General: Lying in bed, not in any acute distress. Appears to be very comfortable, is awake, alert and oriented 3 HEENT: Atraumatic and normocephalic CVS: +S1S2 Lungs: Fair air entry b/l, auscultation is free of any rhonchi, rales or wheezing Abdomen: Soft, nondistended, nontender Extremities: LE reveal 1+ pitting edema Imaging: CXR 01/19: Possible mild left retrocardiac atelectasis/infiltrate. CT abdomen / pelvis 01/19: 1. Bilateral pleural effusions other lung base findings as described above. 2. Cholelithiasis. 3. Right renal lesion as described above. Renal mass cannot be ruled out. Pre and postcontrast enhanced dedicated renal CT with a limb in a short of respirato ry motion artifact is recommended. 4. Rather marked appearing prostatomegaly. 5. Other findings as described above. CXR 01/20: No obvious focal consolidation. Effusions identified on recent chest CT are not visible by current portable x- ray. Assessment and plan: Acute blood loss anemia / Symptomatic anemia - likely 2/2 GI bleed - suspected 2/2 upper - On admission patient had reported shortness of breath on exertion - Hemoglobin on admission of 4.5; has improved after transfusions and has remained stable - s/p 4 units PRBC Suspected GI bleed - c/w Protonix - GI on consultation; appreciate their input - endoscopies have been postponed secondary to elevated troponin - Discussed with gastroenterology scheduled for endoscopies 01/22 pending cardiac clearance Elevated troponin - likely 2/2 demand ischemia 2/2 above, less likely 2/2 NSTEMI - Patient denies any chest pain, shortness breath or palpitations - He reports a history of MS/CAD s/p stent (~8 years ago) - EKG reviewed - Troponin trend has improved - c/w Atorvastatin / Carvedilol / ASA 81 - Unfortunately the patient is not a candidate to receive a full anticoagulation therapy given his recent severe anemia - Cardiology consulted; awaiting evaluation today LE edema / Pleural effusions - likely 2/2 CHF exacerbation - Patient has a history of MS - Physical exam does reveal some signs of fluid overload - ECHO complete; report pending - c/w strict ins/outs, daily weights - Will give single dose of Furosemide IV again today NADIYA vs. CKD3 - Cr baseline unclear; 2010 Cr was 1.4 - Will avoid nephrotoxic medications HTN - BP well controlled; borderline low - Will adjust Carvedilol hold parameters NIDDM2 - c/w ISS R renal lesion - Will need outpatient follow-up for repeat imaging RLL lung nodule - Will need outpatient follow-up for repeat imaging GI prophylaxis - See above DVT prophylaxis - c/w TEDs/Sequentials Code status: - Full code Disposition: - Pending clinical improvement VS,Anju, I+O VS, Gonzalobone, I+O Laboratory Tests 01/20/21 11:49 01/20/21 15:01 01/20/21 22:40 01/21/21 04:56 Vital Signs Date Time Temp Pulse Resp B/P (MAP) Pulse Ox O2 Delivery O2 Flow Rate FiO2 01/21/21 08:02 96.6 77 18 144/78 (100) 98 Room Air 01/20/21 01:30 3.0 I&O- Last 24 Hours up to 6 AM 01/21/21 06:00 Intake Total 340 ml Output Total 350 ml Balance -10 ml EVERT ALEJANDRE MD Jan 21, 2021 09:49
[2021-01-21] MEDS ORDERED: FUROSEMIDE 40MG/4ML VIAL (J1940) IV ONE (09:50)
[2021-01-21] MEDS: ASPIRIN 81MG ENTERIC TABLET PO SCH (09:51)
[2021-01-21] MEDS: HumaLOG INSULIN (NovoLOG) PER UNIT SC SCH ×4 (09:51→20:19)
[2021-01-21] MEDS: CARVedilol 3.125 MG TAB PO SCH ×2 (09:54→20:20)
[2021-01-21] MEDS: PANTOPRAZOLE 40MG VIAL (C9113 PER 1) IV SCH ×2 (09:54→20:13)
[2021-01-21] MEDS: guaiFENesin ER 600 MG TAB PO SCH ×2 (10:07→20:13)
[2021-01-21] MEDS ORDERED: LEVALBUTEROL 1.25 MG/0.5 ML CONCENTRATE NEB INH PRN (10:25)
[2021-01-21 11:53] LABS: HEMATOCRIT 30.2 % (42.0-52.0); HEMOGLOBIN 9.1 g/dl (13.5-17.5); MEAN CORPUSCULAR HEMOGLOBIN 23.5 pg (27.0-33.0); MEAN CORPUSCULAR HGB CONC 30.1 g/dl (32.0-36.5); PLATELET COUNT, AUTOMATED 213 10^3/uL (150-450); RED BLOOD COUNT 3.87 10^6/uL (4.30-6.10); WHITE BLOOD COUNT 9.4 10^3/uL (4.0-10.0)
[2021-01-21 12:00] VITALS: BP 105/65
[2021-01-21] MEDS ORDERED: MOM 30ML SUSPENSION UDC PO ONE (12:15)
[2021-01-21 16:35] VITALS: BP 115/69
[2021-01-21] MEDS ORDERED: POLYETHYLENE GLYCOL (MIRALAX) 238GM BOTTLE PO ONE (17:00)
[2021-01-21 20:00] VITALS: BP 114/61
[2021-01-21] MEDS: ATORVASTATIN 20 MG TAB PO SCH (20:13)
[2021-01-22] VITALS: BP 115/59
[2021-01-22] MEDS: PIPERACILLIN/TAZOBACTAM SOD 3.375 GM in D5W MINI-BAG PLUS 50 ML IV SCH (03:04)
[2021-01-22 04:00] VITALS: BP 116/67
[2021-01-22 06:19] LABS: CALCIUM LEVEL 8.1 MG/DL (8.8-10.2); CREATININE FOR GFR 1.91 MG/DL (0.70-1.30); GLOMERULAR FILTRATION RATE 43.6 (>35); MAGNESIUM LEVEL 1.9 MG/DL (1.8-2.4); POTASSIUM SERUM 3.4 MEQ/L (3.5-5.1)
[2021-01-22] MEDS ORDERED: POLYETHYLENE GLYCOL (MIRALAX) 238GM BOTTLE PO ONE (07:00)
[2021-01-22] MEDS ORDERED: POTASSIUM CHLORIDE 10MEQ SR TABLET PO ONE (07:15)
[2021-01-22] MEDS: HumaLOG INSULIN (NovoLOG) PER UNIT SC SCH ×4 (07:30→21:00)
[2021-01-22 08:30] VITALS: BP 125/73
[2021-01-22] MEDS: CARVedilol 3.125 MG TAB PO SCH ×2 (09:00→21:00)
[2021-01-22] MEDS: guaiFENesin ER 600 MG TAB PO SCH ×2 (09:00→21:17)
--- NOTE | 2021-01-22 10:02 | ECHO ---
ECHOCARDIOGRAM DATE OF PROCEDURE: 01/20/2021 Age: 85 Gender: Male Height: 71 cm Weight: 165 pounds REFERRING PHYSICIAN: Dr. Abimael White LOCATION: [id number] REASON FOR THE STUDY: Edema, shortness of breath, status post gastrointestinal bleed. 2-DIMENSIONAL MEASUREMENTS: 2D MEASUREMENTS: IVS 0.79 cm LV 5.9 cm LVPW 0.85 cm LA 3.8 cm Aorta 3.3 cm IVC 1.5 cm DOPPLER MEASURMENTS: Peak velocity across the aortic valve 2.6 m/s Peak velocity across the LVOT 0.6 m/s Mitral E 1.4, mitral A 0.40 Maximum tricuspid valve velocity 3.5 m/s 2D COMMENTS: 1. Mildly dilated left ventricle with normal left ventricular wall thickness and a moderately depressed global left ventricular systolic function. The estimated left ventricular systolic ejection fraction is 35% to 40%. 2. Some difficulty, the left atrium appeared to be mildly enlarged. Normal right atrium and right ventricle. 3. The atrial septum appeared to be normal without evidence of defect or shunt. 4. Normal aortic root. 5. Trace pericardial effusion noted; no evidence of cardiac tamponade. 6. Mildly calcified aortic valve with mildly restricted leaflet motion. Mildly calcified mitral annulus with normal anterior mitral valve leaflet motion. Normal tricuspid valve. The pulmonic valve and proximal pulmonary artery branches were not well visualized. 7. The inferior vena cava was normal in size; central venous pressure is mostly normal. DOPPLER: It detects trace aortic regurgitation, moderately severe mitral regurgitation, and moderate tricuspid regurgitation. The calculated pulmonary artery systolic pressure varies between 40-50 mmHg. IMPRESSION: 1. Moderate global left ventricular systolic dysfunction with diffuse hypokinesis and eccentric left ventricular hypertrophy. 2. Aortic valve sclerosis with trace aortic regurgitation and mild aortic stenosis. 3. Mitral annulus calcification with moderately severe mitral regurgitation. Subjectively, the left atrium appeared to be mildly enlarged. 4. Moderate tricuspid regurgitation with moderate pulmonary hypertension. 5. Trace pericardial effusion.
[2021-01-22] MEDS: PANTOPRAZOLE 40MG VIAL (C9113 PER 1) IV SCH (11:14)
[2021-01-22] MEDS ORDERED: propofoL 200 MG/20 ML VIAL As Ordered ONE (12:30)
[2021-01-22] MEDS ORDERED: LIDOCAINE 2% 100MG/5ML SDV (FOR ANES.) As Ordered ONE (12:30)
--- NOTE | 2021-01-22 13:23 | ROOR ---
Patient Name: Brian Mary Procedure Date: 01/22/2021 12:53 PM Date of : 1935 Age: 85 Room: [facility] Gender: Male Note Status: Finalized Procedure: Upper GI endoscopy Indications: Acute post hemorrhagic anemia Providers: Pete Pandya MD Referring MD: [facility], Admin. Requesting Provider: Medicines: Monitored Anesthesia Care Complications: No immediate complications. Procedure: Pre-Anesthesia Assessment: - The heart rate, respiratory rate, oxygen saturations, blood pressure, adequacy of pulmonary ventilation, and response to care were monitored throughout the procedure. The Endoscope was introduced through the mouth, and advanced to the second part of duodenum. The upper GI endoscopy was accomplished without difficulty. The patient tolerated the procedure well. Findings: One non-obstructing non-bleeding linear gastric ulcer of mild to moderate severity with no stigmata of bleeding was found in the prepyloric region of the stomach. The lesion was 5 mm in largest dimension. Biopsies were taken with a cold forceps for histology. The exam was otherwise without abnormality. Impression: - Non-obstructing non-bleeding gastric ulcer with no stigmata of bleeding. Biopsied. - The examination was otherwise normal. Recommendation: - Telephone endoscopist for pathology results in 2 weeks. - Use Prilosec (omeprazole) 40 mg PO daily. Procedure Code(s): --- Professional --- 65572, Esophagogastroduodenoscopy, flexible, transoral; with biopsy, single or multiple Diagnosis Code(s): --- Professional --- D62, Acute posthemorrhagic anemia K25.9, Gastric ulcer, unspecified as acute or chronic, without hemorrhage or perforation CPT copyright 2019 [employer]. All rights reserved. The codes documented in this report are preliminary and upon awake overnight counselor review may be revised to meet current compliance requirements. Pete Pandya MD Pete Pandya MD 01/22/2021 1:23:10 PM Electronically signed by Pete Pandya MD Number of Addenda: 0 Note Initiated On: 01/22/2021 12:53 PM Estimated Blood Loss: Estimated blood loss: none.
[2021-01-22] MEDS ORDERED: ePHEDrine SULFATE 25 MG/5 ML(5MG/ML) SYRINGE As Ordered ONE (13:31)
--- NOTE | 2021-01-22 13:55 | ROOR ---
Patient Name: Brian Mary Procedure Date: 01/22/2021 12:56 PM Date of : 1935 Age: 85 Room: [facility] Gender: Male Note Status: Finalized Procedure: Colonoscopy Indications: Acute post hemorrhagic anemia Providers: Pete Pandya MD Referring MD: [facility], Admin. Requesting Provider: Medicines: Monitored Anesthesia Care Complications: No immediate complications. Procedure: Pre-Anesthesia Assessment: - The heart rate, respiratory rate, oxygen saturations, blood pressure, adequacy of pulmonary ventilation, and response to care were monitored throughout the procedure. The Colonoscope was introduced through the anus and advanced to the cecum, identified by appendiceal orifice and ileocecal valve. The colonoscopy was performed without difficulty. The patient tolerated the procedure well. The quality of the bowel preparation was good. Findings: The perianal and digital rectal examinations were normal. Two medium-sized patchy angioectasias with bleeding on contact were found in the cecum and at the appendiceal orifice. For hemostasis, four hemostatic clips were successfully placed. There was no bleeding at the end of the procedure. A 6 mm polyp was found in the cecum. The polyp was semi-sessile. The polyp was removed with a cold snare. Resection and retrieval were complete. To prevent bleeding after the polypectomy, one hemostatic clip was successfully placed. A diminutive polyp was found in the sigmoid colon. The polyp was sessile. The polyp was removed with a cold snare. Resection and retrieval were complete. Multiple small and large-mouthed diverticula were found in the sigmoid colon. Small Internal Hemorrhoids. The exam was otherwise without abnormality on direct and retroflexion views. Impression: - Two cecal angioectasias. Clips were placed. - One 6 mm polyp in the cecum, removed with a cold snare. Resected and retrieved. Clip was placed. - One diminutive polyp in the sigmoid colon, removed with a cold snare. Resected and retrieved. - Moderate diverticulosis in the sigmoid colon. - Small Internal Hemorrhoids. - The examination was otherwise normal on direct and retroflexion views. (- I suspect intermittent/chronic blood loss likley related to cecal AVM's. These were treated/clipped today.) Recommendation: - Await pathology results. - Return patient to hospital gill for ongoing care. - Advance diet as tolerated. - Observe Hb as outpatient with PCP. - Iron supplemetation recommended. Procedure Code(s): --- Professional --- 72370, 59, Colonoscopy, flexible; with control of bleeding, any method 13870, Colonoscopy, flexible; with removal of tumor(s), polyp(s), or other lesion(s) by snare technique Diagnosis Code(s): --- Professional --- K57.30, Diverticulosis of large intestine without perforation or abscess without bleeding D62, Acute posthemorrhagic anemia K63.5, Polyp of colon K55.20, Angiodysplasia of colon without hemorrhage CPT copyright 2019 [employer]. All rights reserved. The codes documented in this report are preliminary and upon can tender review may be revised to meet current compliance requirements. Pete Pandya MD Pete Pandya MD 01/22/2021 1:54:57 PM Electronically signed by Pete Pandya MD Number of Addenda: 0 Note Initiated On: 01/22/2021 12:56 PM Estimated Blood Loss: Estimated blood loss: none.
[2021-01-22 14:30] VITALS: BP 103/54
--- NOTE | 2021-01-22 15:27 | IPNPDOC ---
Text Note Date of Service The patient was seen on 01/22/21. NOTE Subjective: Patient is an 85-year-old -[place] male with a PMHx of CAD s/p stent (Hx of MO), HTN, NIDDM2, BPH who presented to the ER on 01/19 for shortness of breath with exertion over the last several days. Patient has reported that over the course of 1 month he's been noting dark colored stools. On arrival he was noted to have a hemoglobin of 4.5. Patient was admitted to the hospital service for further evaluation and treatment. Gastroenterology was called on consultation. Patient was seen and examined at the bedside. He appeared to be doing well. Denies any chest pain, shortness breath, palpitations. Has not experience any nausea, vomiting, abdominal pain. Patient did report several bowel movements after his bowel prep. Denied any urinary discomfort. Objective: Vitals (See below) General: Patient lying in bed, appears to be comfortable, no acute distress, is awake, alert and oriented 3 HEENT: AT, NC CVS: +S1S2 Lungs: Appear to have fair air entry bilaterally without any auscultated evidence of crackles, wheezing or rhonchi Abdomen: His abdomen remains soft without any distention or tenderness Extremities: Lower tremors with trace to 1+ edema Imaging: CXR 01/19: Possible mild left retrocardiac atelectasis/infiltrate. CT abdomen / pelvis 01/19: 1. Bilateral pleural effusions other lung base findings as described above. 2. Cholelithiasis. 3. Right renal lesion as described above. Renal mass cannot be ruled out. Pre and postcontrast enhanced dedicated renal CT with a limb in a short of respiratory motion artifact is recommended. 4. Rather marked appearing prostatomegaly. 5. Other findings as described above. CXR 01/20: No obvious focal consolidation. Effusions identified on recent chest CT are not visible by current portable x- ray. ECHO 01/22: 1. Moderate global left ventricular systolic dysfunction with diffuse hypokinesis and eccentric left ventricular hypertrophy. 2. Aortic valve sclerosis with trace aortic regurgitation and mild aortic stenosis. 3. Mitral annulus calcification with moderately severe mitral regurgitation. Subjectively, the left atrium appeared to be mildly enlarged. 4. Moderate tricuspid regurgitation with moderate pulmonary hypertension. 5. Trace pericardial effusion. Assessment and plan: Acute blood loss anemia / Symptomatic anemia - likely 2/2 GI bleed - Patient appears to be asymptomatic. Currently - Hemoglobin on admission of 4.5; has improved after transfusions and has remained stable - s/p 4 units PRBC GI bleed - likely 2/2 cecal angiectasias (x2) s/p clips - s/p EGD on 01/22: Nonobstructing, nonbleeding gastric ulcer with no stigmata of bleeding - s/p Colonoscopy on 01/22: 2. Cecal angiectasias - clips were placed, one 6 mm polyp cecum, removed with cold snare clip placed, one diminutive polyp in sigmoid colon, removed with cold snare, moderate diverticulosis in sigmoid colon, small internal hemorrhoids - Will discontinue Protonix, IV; Will start Omeprazole - GI on consultation; appreciate their input Elevated troponin - likely 2/2 demand ischemia 2/2 above, less likely 2/2 NSTEMI - Again he denies any chest pain, shortness breath or palpitations - He reports a history of MO/CAD s/p stent (~8 years ago) - EKG reviewed - Troponin trend has improved - c/w Atorvastatin / Carvedilol / ASA 81 - Unfortunately the patient is not a candidate to receive a full anticoagulation therapy given his recent severe anemia - Cardiology consulted; appreciate their input LE edema / Pleural effusions - likely 2/2 CHF exacerbation - Patient has a history of MO - Physical exam does reveal some signs of fluid overload - ECHO complete; report pending - c/w strict ins/outs, daily weights - Will give single dose of Furosemide IV again today NADIYA vs. CKD3 - Cr baseline unclear; 2010 Cr was 1.4 - Will avoid nephrotoxic medications HTN - BP well controlled; borderline low - c/w Carvedilol; with hold parameters NIDDM2 - c/w ISS R renal lesion - Will need outpatient follow-up for repeat imaging RLL lung nodule - Will need outpatient follow-up for repeat imaging GI prophylaxis - See above DVT prophylaxis - c/w TEDs/Sequentials Code status: - Full code Disposition: - Pending clinical improvement - Anticipate discharge home tomorrow VS,Fishbone, I+O VS, Fishbone, I+O Laboratory Tests 01/22/21 05:39 Vital Signs Date Time Temp Pulse Resp B/P (MAP) Pulse Ox O2 Delivery O2 Flow Rate FiO2 01/22/21 14:30 97.4 60 16 103/54 (70) 99 Room Air 01/22/21 14:14 3.0 I&O- Last 24 Hours up to 6 AM 01/22/21 06:00 Intake Total 2550 ml Output Total 1100 ml Balance 1450 ml EVERT ALEJANDRE MD Jan 22, 2021 15:26
[2021-01-22] MEDS: ASPIRIN 81MG ENTERIC TABLET PO SCH (15:56)
[2021-01-22 15:57] VITALS: BP 112/59
[2021-01-22 20:00] VITALS: BP 103/61
[2021-01-22] MEDS: ATORVASTATIN 20 MG TAB PO SCH (21:17)
[2021-01-22] MEDS: FERROUS SULFATE 325MG TAB PO SCH (21:17)
[2021-01-23 04:00] VITALS: BP 91/52
[2021-01-23 06:40] LABS: CALCIUM LEVEL 8.4 MG/DL (8.8-10.2); CREATININE FOR GFR 1.69 MG/DL (0.70-1.30); GLOMERULAR FILTRATION RATE 50.3 (>35); MAGNESIUM LEVEL 2.1 MG/DL (1.8-2.4)
[2021-01-23 07:46] LABS: BASO % 0.4 % (0.0-1.0); EOS # 0.5 10^3/uL (0.0-0.5); HEMATOCRIT 30.9 % (42.0-52.0); HEMOGLOBIN 8.6 g/dl (13.5-17.5); LYMPH # 0.8 10^3/uL (1.5-5.0); LYMPH % 8.9 % (24.0-44.0); MEAN CORPUSCULAR HEMOGLOBIN 22.9 pg (27.0-33.0); MEAN CORPUSCULAR HGB CONC 27.8 g/dl (32.0-36.5); MEAN CORPUSCULAR VOLUME 82.4 fl (80.0-96.0); MONO # 0.7 10^3/uL (0.0-0.8); MONO % 8.1 % (2.0-8.0); NEUTROPHILS # 6.9 10^3/uL (1.5-8.5); NEUTROPHILS % 77.3 % (36.0-66.0); PLATELET COUNT, AUTOMATED 264 10^3/uL (150-450); RED BLOOD COUNT 3.75 10^6/uL (4.30-6.10)
[2021-01-23 08:00] VITALS: BP 115/58
[2021-01-23] MEDS: guaiFENesin ER 600 MG TAB PO SCH (08:00)
[2021-01-23] MEDS: ASPIRIN 81MG ENTERIC TABLET PO SCH (08:00)
[2021-01-23] MEDS: FERROUS SULFATE 325MG TAB PO SCH (08:00)
[2021-01-23 08:01] VITALS: BP 91/52
[2021-01-23] MEDS: CARVedilol 3.125 MG TAB PO SCH (08:01)
[2021-01-23] MEDS: HumaLOG INSULIN (NovoLOG) PER UNIT SC SCH ×2 (08:02→12:00)
[2021-01-23] MEDS ORDERED: OMEPRAZOLE 20 MG CAP PO SCH (09:00)
[2021-01-23 11:05] LABS: HEMATOCRIT 34.6 % (42.0-52.0); HEMOGLOBIN 9.7 g/dl (13.5-17.5)
--- NOTE | 2021-01-23 11:57 | IPNPDOC ---
Text Note Date of Service The patient was seen on 01/23/21. VS,Anju, I+O VS, Anju, I+O Laboratory Tests 01/23/21 05:39 01/23/21 10:48 Vital Signs Date Time Temp Pulse Resp B/P (MAP) Pulse Ox O2 Delivery O2 Flow Rate FiO2 01/23/21 08:01 72 91/52 01/23/21 08:00 97.7 18 100 Room Air 01/22/21 14:14 3.0 I&O- Last 24 Hours up to 6 AM 01/23/21 05:59 Intake Total 600 ml Output Total 100 ml Balance 500 ml EVERT ALEJANDRE MD Jan 23, 2021 11:57
--- NOTE | 2021-01-23 14:45 | DS.PDOC ---
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 CKD3 HTN NIDDM2 R renal lesion RLL lung nodule GI prophylaxis DVT prophylaxis COMPLICATIONS/CHIEF COMPLAINT: Shortness of breath HISTORY OF PRESENT ILLNESS: Patient is an 85-year-old -[place] male with a PMHx of CAD s/p stent (Hx of AR), HTN, NIDDM2, BPH who presented to the ER on 01/19 for shortness of breath with exertion over the last several days. Patient has reported that over the course of 1 month he's been noting dark colored stools. On arrival he was noted to have a hemoglobin of 4.5. Patient was admitted to the hospital service for further evaluation and treatment. Gastroenterology was called on consultation. Patient was seen and examined at the bedside. Patient reports that he is having difficulty sleeping at night after being awoken several times. He denies any nausea, vomiting, chest pain, shortness breath, palpitations,abdominal pain. Reports that he has had bowel without any evidence of blood. 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 - No further evidence of bleeding - s/p EGD on 01/22: Nonobstructing, nonbleeding gastric ulcer with no stigmata of bleeding - s/p Colonoscopy on 01/22: 2 Cecal angiectasias - clips were placed, one 6 mm polyp cecum, removed with cold snare clip placed, one diminutive polyp in sigmoid colon, removed with cold snare, moderate diverticulosis in sigmoid colon, small internal hemorrhoids - c/w Omeprazole; s/p Protonix - GI on consultation; appreciate their input - Will have outpatient follow-up with primary care provider for follow-up with biopsy results Elevated troponin - likely 2/2 demand ischemia 2/2 above, less likely 2/2 NSTEMI - Remains asymptomatic - He reports a history of AR/CAD s/p stent (~8 years ago) - EKG reviewed - Troponin trend has improved - c/w Atorvastatin / Carvedilol / ASA 81 - Unfortunately the patient is not a candidate to receive a full anticoagulation therapy given his recent severe anemia - Cardiology consulted; appreciate their input; will have outpatient follow-up with cardiology within the next 7 days LE edema / Pleural effusions - likely 2/2 Acute on Chronic Systolic CHF exacerbation (EF: 35-40%) - Patient has a history of AR - Physical exam does reveal some signs of fluid overload - ECHO complete; report pending - c/w strict ins/outs, daily weights - s/p Lasix - Will have outpatient follow up with Cardiology within 7 days NADIYA vs. CKD3 - Cr baseline unclear; 2010 Cr was 1.4 - Creatinine has been slowly improving and trending toward baseline - Will avoid nephrotoxic medications HTN - BP well controlled; borderline low - c/w Carvedilol; with hold parameters NIDDM2 - ISS was ordered; but patient has not received any significant doses - Will have outpatient follow up with PCP R renal lesion - Will need outpatient follow-up for repeat imaging RLL lung nodule - Will need outpatient follow-up for repeat imaging GI prophylaxis - See above DVT prophylaxis - c/w TEDs/Sequentials DISCHARGE MEDICATIONS: Please see below. ALLERGIES: Please see below. PHYSICAL EXAMINATION ON DISCHARGE: Vitals (See below) General: Patient is sitting up in bed, appears comfortable, not in any acute distress, is awake, alert and oriented 3 HEENT: Atraumatic and normocephalic CVS: +S1S2 Lungs: There does not appear to be any wheezing, rales or rhonchi on auscultation Abdomen: Soft, nondistended, nontender Extremities: Lower sugars reveal 1+ pitting edema LABORATORY DATA: Please see below. IMAGING: CXR 01/19: Possible mild left retrocardiac atelectasis/infiltrate. CT abdomen / pelvis 11/29: 1. Bilateral pleural effusions other lung base findings as described above. 2. Cholelithiasis. 3. Right renal lesion as described above. Renal mass cannot be ruled out. Pre and postcontrast enhanced dedicated renal CT with a limb in a short of respiratory motion artifact is recommended. 4. Rather marked appearing prostatomegaly. 5. Other findings as described above. CXR 01/20: No obvious focal consolidation. Effusions identified on recent chest CT are not visible by current portable x- ray. ECHO 01/22: 1. Moderate global left ventricular systolic dysfunction with diffuse hypokinesis and eccentric left ventricular hypertrophy. 2. Aortic valve sclerosis with trace aortic regurgitation and mild aortic stenosis. 3. Mitral annulus calcification with moderately severe mitral regurgitation. Subjectively, the left atrium appeared to be mildly enlarged. 4. Moderate tricuspid regurgitation with moderate pulmonary hypertension. 5. Trace pericardial effusion. ACTIVITY: [As tolerated]. DISCHARGE PLAN: Follow-up with primary care provider, and cardiology within the next 7 days Remain compliant with treatment plan and medications Return to the ER if you experience any problems DISPOSITION: Home with services DISCHARGE CONDITION: [Stable]. TIME SPENT ON DISCHARGE: 35 minutes. Vital Signs/I&Os Vital Signs Date Time Temp Pulse Resp B/P (MAP) Pulse Ox O2 Delivery O2 Flow Rate FiO2 01/23/21 08:01 72 91/52 01/23/21 08:00 97.7 18 100 Room Air 01/22/21 14:14 3.0 I&O- Last 24 Hours up to 6 AM 01/23/21 05:59 Intake Total 600 ml Output Total 100 ml Balance 500 ml Laboratory Data Labs 24H Laboratory Tests 2 01/22/21 17:13: Bedside Glucose (Misc Panel) 94 01/22/21 21:02: Bedside Glucose (Misc Panel) 117H 01/23/21 05:39: Immature Granulocyte % (Auto) 0.3, Neutrophils (%) (Auto) 77.3H, Lymphocytes (%) (Auto) 8.9L, Monocytes (%) (Auto) 8.1H, Eosinophils (%) (Auto) 5.0H, Basophils (%) (Auto) 0.4, Neutrophils # (Auto) 6.9, Lymphocytes # (Auto) 0.8L, Monocytes # (Auto) 0.7, Eosinophils # (Auto) 0.5, Basophils # (Auto) 0.0, Nucleated Red Blood Cells % (auto) 0.3H, Anion Gap 5L, Glomerular Filtration Rate 50.3, Calcium Level 8.4L, Magnesium Level 2.1 01/23/21 12:09: Bedside Glucose (Misc Panel) 103 CBC/BMP Laboratory Tests 01/23/21 05:39 01/23/21 10:48 FSBS Laboratory Tests Test 01/22/21 17:13 01/22/21 21:02 01/23/21 12:09 Range/Units Bedside Glucose (Misc Panel) 94 117 103 83-110 MG/DL Microbiology Microbiology 01/20/21 Blood Culture - Preliminary, Resulted No Growth after 72 hours. All specime... 01/20/21 Stool Occult Blood (REBA) - Final, Complete 01/19/21 Blood Culture - Preliminary, Resulted No Growth after 72 hours. All specime... Discharge Medications Scheduled Aspirin (Aspirin EC) 81 Mg Tablet.dr, 81 MG PO DAILY, (Reported) Atorvastatin Calcium (Atorvastatin Calcium) 20 Mg Tablet, 20 MG PO QHS Carvedilol (Carvedilol) 3.125 Mg Tablet, 3.125 MG PO BID Ferrous Sulfate (Ferrous Sulfate) 325 Mg Tablet, 325 MG PO BID Omeprazole (Omeprazole) 20 Mg Capsule.dr, 40 MG PO DAILY Allergies Coded Allergies: No Known Allergies (Verified , 01/18/11) EVERT ALEJANDRE MD Jan 23, 2021 14:45
[2021-01-23] MEDS ORDERED: CARV3.12 PO (14:46)
[2021-01-23] MEDS ORDERED: OMEP-218 PO (14:46)
[2021-01-23] MEDS ORDERED: ATOR1TAB21 PO (14:46)
[2021-01-23] MEDS ORDERED: FERR1TAB8 PO (14:46)
[2021-01-23 16:00] VITALS: BP 111/63
== END 2021-01-23 17:25 | disposition home or self-care (01) | DRG 377 ==
LOC: M ED 13:26 → M ED INP 15:53 → ENRESERV 19:37 → M MSPAV 22:48 → M PCU 01-20 11:14
PROVIDERS: ADMIT Family Medicine; ATTEND Internal Medicine
PROC: 30233N1 Transfusion of Nonautologous Red Blood Cells into Peripheral Vein, Percutaneous Approach (ICD-10-PCS; principal; 2021-01-19)
PROC: 0DB78ZX Excision of Stomach, Pylorus, Via Natural or Artificial Opening Endoscopic, Diagnostic (ICD-10-PCS; 2021-01-22)
PROC: 0W3P8ZZ Control Bleeding in Gastrointestinal Tract, Via Natural or Artificial Opening Endoscopic (ICD-10-PCS; 2021-01-22)
PROC: 0DBH8ZX Excision of Cecum, Via Natural or Artificial Opening Endoscopic, Diagnostic (ICD-10-PCS; 2021-01-22)
PROC: 0DBN8ZX Excision of Sigmoid Colon, Via Natural or Artificial Opening Endoscopic, Diagnostic (ICD-10-PCS; 2021-01-22)
DX: K55.21 Angiodysplasia of colon with hemorrhage (principal); I50.23 Acute on chronic systolic (congestive) heart failure; N17.9 Acute kidney failure, unspecified; E87.2 Acidosis; J90 Pleural effusion, not elsewhere classified; I24.8 Other forms of acute ischemic heart disease; D62 Acute posthemorrhagic anemia; K92.2 Gastrointestinal hemorrhage, unspecified; F17.210 Nicotine dependence, cigarettes, uncomplicated; F10.10 Alcohol abuse, uncomplicated; R77.8 Other specified abnormalities of plasma proteins; R60.9 Edema, unspecified; E11.9 Type 2 diabetes mellitus without complications; I11.0 Hypertensive heart disease with heart failure; D41.01 Neoplasm of uncertain behavior of right kidney; R91.1 Solitary pulmonary nodule; Z20.822 Contact with and (suspected) exposure to COVID-19; Z79.82 Long term (current) use of aspirin; I95.9 Hypotension, unspecified; I25.10 Atherosclerotic heart disease of native coronary artery without angina pectoris; Z95.5 Presence of coronary angioplasty implant and graft; I25.2 Old myocardial infarction; N40.0 Benign prostatic hyperplasia without lower urinary tract symptoms; K25.9 Gastric ulcer, unspecified as acute or chronic, without hemorrhage or perforation; K63.5 Polyp of colon

== ENCOUNTER → 2021-02-11 | Outpatient (CLI) | payer MEDICARE, OTHER ==
[~2021-02-11] MED LIST changes: +ASPI81TA26 PO; +ATOR1TAB21 PO; +CARV3.12 PO; +FERR1TAB8 PO; +OMEP-218 PO
[2021-02-11 14:42] LABS: BASO % 0.5 % (0.0-1.0); EOS # 0.3 10^3/uL (0.0-0.5); EOS % 4.2 % (0.0-3.0); HEMATOCRIT 32.5 % (42.0-52.0); HEMOGLOBIN 9.2 g/dl (13.5-17.5); LYMPH % 12.6 % (24.0-44.0); MEAN CORPUSCULAR HEMOGLOBIN 25.3 pg (27.0-33.0); MEAN CORPUSCULAR HGB CONC 28.3 g/dl (32.0-36.5); MEAN CORPUSCULAR VOLUME 89.3 fl (80.0-96.0); MONO # 0.7 10^3/uL (0.0-0.8); MONO % 8.7 % (2.0-8.0); NEUTROPHILS # 5.8 10^3/uL (1.5-8.5); NEUTROPHILS % 73.5 % (36.0-66.0); PLATELET COUNT, AUTOMATED 336 10^3/uL (150-450); RED BLOOD COUNT 3.64 10^6/uL (4.30-6.10); WHITE BLOOD COUNT 7.8 10^3/uL (4.0-10.0)
[2021-02-11 15:12] LABS: ALBUMIN 2.9 GM/DL (3.2-5.2); ALT/SGPT 16 U/L (12-78); BILIRUBIN,TOTAL 0.3 MG/DL (0.2-1.0); BLOOD UREA NITROGEN 19 MG/DL (7-18); CALCIUM LEVEL 8.7 MG/DL (8.8-10.2); CARBON DIOXIDE LEVEL 29 MEQ/L (21-32); CHLORIDE LEVEL 115 MEQ/L (98-107); CHOLESTEROL LEVEL 114 MG/DL (<200); CHOLESTEROL RISK RATIO 1.932 (<5); CREATININE FOR GFR 1.21 MG/DL (0.70-1.30); GLOMERULAR FILTRATION RATE > 60.0 (>35); GLUCOSE, FASTING 110 MG/DL (70-100); HDL CHOLESTEROL 59 MG/DL (>40); LDL CHOLESTEROL 35 MG/DL (<100); NON-HDL-C 55 MG/DL; POTASSIUM SERUM 5.2 MEQ/L (3.5-5.1); SODIUM LEVEL 147 MEQ/L (136-145); TOTAL PROTEIN 6.7 GM/DL (6.4-8.2); TRIGLYCERIDES LEVEL 99 MG/DL (<150)
[2021-02-11 17:23] LABS: HEMOGLOBIN A1c 5.2 %
== END ==
LOC: M LAB 14:12
PROVIDERS: ATTEND Student in an Organized Health Care Education/Training Program
DX: E11.9 Type 2 diabetes mellitus without complications (principal); I10 Essential (primary) hypertension; K92.2 Gastrointestinal hemorrhage, unspecified

== ENCOUNTER → 2021-03-25 | Outpatient (CLI) | payer MEDICARE, OTHER ==
[~2021-03-25] MED LIST changes: +OMEP-173 PO; -OMEP-218 PO
== END ==
LOC: M RAD 14:39
PROVIDERS: ATTEND Internal Medicine Pulmonary Disease
DX: R91.8 Other nonspecific abnormal finding of lung field (principal)

== ENCOUNTER → 2021-05-04 | Outpatient (REF) | payer MEDICARE, OTHER ==
[2021-05-04 18:06] LABS: PERCENT SATURATION 15.2 % (19.7-50.0)
== END ==
LOC: M LAB REF 16:40
PROVIDERS: ATTEND Internal Medicine Nephrology
DX: E61.1 Iron deficiency (principal); D63.1 Anemia in chronic kidney disease

== ENCOUNTER 2021-05-15 11:09 | Outpatient (CLI) | payer MEDICARE, OTHER ==
[~2021-05-15] VITALS: Ht 205.7 cm; Wt 75.4 kg
[~2021-05-15 11:09] MED LIST changes: +ALBUTEROL SULFATE 2.5 MG/0.5 ML INH NEB SOLN INH PRN; +EPINEPHrine INJ 1 MG/ML 1ML AMP IM PRN; +diphenhydrAMINE 50MG/ML VIAL (J1200) IV PRN; +methylPREDNISolone 125MG 2ML VIAL IV PRN
[2021-05-15 11:15] VITALS: BP 142/72
[2021-05-15] MEDS ORDERED: NS 1,000 ML IV SCH (11:30)
[2021-05-15] MEDS ORDERED: FERRIC CARBOXYMALTOSE INJ 750 MG, VIAL MATE ADAPTER 1 EACH in NS 250 ML IV ONE (11:30)
[2021-05-15 13:40] VITALS: BP 132/72
== END 2021-05-15 13:40 | disposition home or self-care (01) ==
LOC: M INFU 11:09
PROVIDERS: ATTEND Internal Medicine Nephrology
DX: E61.1 Iron deficiency (principal); N18.30 Chronic kidney disease, stage 3 unspecified
CPT/HCPCS: 96365; 96366; J1439

== ENCOUNTER 2021-05-22 08:27 | Outpatient (CLI) | payer MEDICARE, OTHER ==
[~2021-05-22] VITALS: Ht 177.8 cm; Wt 75.0 kg
[~2021-05-22 08:27] MED LIST changes: +ALBUTEROL SULFATE 2.5 MG/0.5 ML INH NEB SOLN INH PRN; +EPINEPHrine INJ 1 MG/ML 1ML AMP IM PRN; +diphenhydrAMINE 50MG/ML VIAL (J1200) IV PRN; +methylPREDNISolone 125MG 2ML VIAL IV PRN
[2021-05-22 08:50] VITALS: BP 132/72
[2021-05-22] MEDS ORDERED: NS 1,000 ML IV SCH (09:00)
[2021-05-22] MEDS ORDERED: FERRIC CARBOXYMALTOSE INJ 750 MG, VIAL MATE ADAPTER 1 EACH in NS 250 ML IV ONE (09:00)
[2021-05-22 10:45] VITALS: BP 131/66
== END 2021-05-22 10:45 | disposition home or self-care (01) ==
LOC: M INFU 08:27
PROVIDERS: ATTEND Internal Medicine Nephrology
DX: E61.1 Iron deficiency (principal); N18.30 Chronic kidney disease, stage 3 unspecified
CPT/HCPCS: 36415; 80048; 96365; J1439

== ENCOUNTER → 2021-05-22 | Outpatient (CLI) | payer MEDICARE, OTHER ==
[~2021-05-22] MED LIST changes: -ALBUTEROL SULFATE 2.5 MG/0.5 ML INH NEB SOLN INH PRN; -EPINEPHrine INJ 1 MG/ML 1ML AMP IM PRN; -diphenhydrAMINE 50MG/ML VIAL (J1200) IV PRN; -methylPREDNISolone 125MG 2ML VIAL IV PRN
[2021-05-22 09:29] LABS: CALCIUM LEVEL 8.8 MG/DL (8.8-10.2); CREATININE FOR GFR 1.57 MG/DL (0.70-1.30); GLOMERULAR FILTRATION RATE 54.6 (>35); POTASSIUM SERUM 4.7 MEQ/L (3.5-5.1)
== END ==
LOC: M LAB 08:32
PROVIDERS: ATTEND Physician Assistant
DX: N28.89 Other specified disorders of kidney and ureter (principal)

== ENCOUNTER → 2021-05-26 | Outpatient (CLI) | payer MEDICARE, OTHER ==
[~2021-05-26] MED LIST changes: -ALBUTEROL SULFATE 2.5 MG/0.5 ML INH NEB SOLN INH PRN; -EPINEPHrine INJ 1 MG/ML 1ML AMP IM PRN; +ISOVUE-370 76% 100ML VIAL As Ordered ONE; -diphenhydrAMINE 50MG/ML VIAL (J1200) IV PRN; -methylPREDNISolone 125MG 2ML VIAL IV PRN
== END ==
LOC: M RAD 13:49
PROVIDERS: ATTEND Physician Assistant
DX: N28.89 Other specified disorders of kidney and ureter (principal); J90 Pleural effusion, not elsewhere classified
CPT/HCPCS: 74177; Q9967

== ENCOUNTER → 2021-07-06 | Outpatient (CLI) | payer MEDICARE, OTHER ==
[~2021-07-06] MED LIST changes: -ISOVUE-370 76% 100ML VIAL As Ordered ONE
== END ==
LOC: M RAD 08:04
PROVIDERS: ATTEND Student in an Organized Health Care Education/Training Program
DX: K80.20 Calculus of gallbladder without cholecystitis without obstruction (principal); K82.8 Other specified diseases of gallbladder

== ENCOUNTER → 2021-09-02 | Outpatient (CLI) | payer MEDICARE, OTHER | LOC: M PLAIMG 10:41 | PROVIDERS: ATTEND Internal Medicine Pulmonary Disease | DX: R91.8 Other nonspecific abnormal finding of lung field (principal); J47.9 Bronchiectasis, uncomplicated ==

== ENCOUNTER → 2022-04-28 | Outpatient (CLI) | payer MEDICARE, OTHER ==
[2022-04-28 11:36] LABS: BASO # 0.1 10^3/uL (0.0-0.2); EOS # 0.6 10^3/uL (0.0-0.5); HEMATOCRIT 37.9 % (42.0-52.0); HEMOGLOBIN 11.7 g/dl (13.5-17.5); LYMPH # 1.4 10^3/uL (1.5-5.0); LYMPH % 14.6 % (24.0-44.0); MEAN CORPUSCULAR HEMOGLOBIN 30.1 pg (27.0-33.0); MEAN CORPUSCULAR HGB CONC 30.9 g/dl (32.0-36.5); MEAN CORPUSCULAR VOLUME 97.4 fl (80.0-96.0); MONO # 0.8 10^3/uL (0.0-0.8); MONO % 9.1 % (2.0-8.0); NEUTROPHILS # 6.3 10^3/uL (1.5-8.5); NEUTROPHILS % 68.3 % (36.0-66.0); PLATELET COUNT, AUTOMATED 296 10^3/uL (150-450); RED BLOOD COUNT 3.89 10^6/uL (4.30-6.10); WHITE BLOOD COUNT 9.3 10^3/uL (4.0-10.0)
[2022-04-28 12:08] LABS: ALBUMIN 3.7 G/DL (3.2-5.2); BILIRUBIN,TOTAL 0.3 MG/DL (0.3-1.2); CALCIUM LEVEL 9.1 MG/DL (8.3-10.6); CREATININE FOR GFR 2.14 MG/DL (0.70-1.30); GLOMERULAR FILTRATION RATE 38.1 (>35); POTASSIUM SERUM 4.9 MMOL/L (3.5-5.1); TOTAL PROTEIN 7.5 G/DL (5.7-8.2)
== END ==
LOC: M LAB 10:38
PROVIDERS: ATTEND Internal Medicine Cardiovascular Disease
DX: I50.42 Chronic combined systolic (congestive) and diastolic (congestive) heart failure (principal); I25.10 Atherosclerotic heart disease of native coronary artery without angina pectoris

== ENCOUNTER → 2022-05-20 | Outpatient (REF) | payer MEDICARE, OTHER ==
[2022-05-20 19:34] LABS: PERCENT SATURATION 16.7 % (19.7-50.0)
[2022-05-20 19:35] LABS: FERRITIN 663.8 NG/ML (10.5-307.3)
== END ==
LOC: M LAB REF 17:08
PROVIDERS: ATTEND Internal Medicine Nephrology
DX: N18.9 Chronic kidney disease, unspecified (principal); D63.1 Anemia in chronic kidney disease

== ENCOUNTER → 2022-12-20 | Outpatient (CLI) | payer MEDICARE, OTHER ==
[~2022-12-20] MED LIST changes: +OMEP40CA5 PO; +TORS20TA2 PO; +VITA100093 PO
[2022-12-20 15:00] LABS: HEMATOCRIT 29.3 % (42.0-52.0); HEMOGLOBIN 9.4 g/dl (13.5-17.5); MEAN CORPUSCULAR HEMOGLOBIN 30.5 pg (27.0-33.0); MEAN CORPUSCULAR HGB CONC 32.1 g/dl (32.0-36.5); MEAN CORPUSCULAR VOLUME 95.1 fl (80.0-96.0); PLATELET COUNT, AUTOMATED 319 10^3/uL (150-450); RED BLOOD COUNT 3.08 10^6/uL (4.30-6.10); WHITE BLOOD COUNT 8.3 10^3/uL (4.0-10.0)
== END ==
LOC: M LAB 14:24
PROVIDERS: ATTEND Student in an Organized Health Care Education/Training Program
DX: R31.0 Gross hematuria (principal); N36.5 Urethral false passage

== ENCOUNTER → 2023-02-16 | Outpatient (CLI) | payer MEDICARE, OTHER | LOC: M LAB 14:04 | PROVIDERS: ATTEND Family Medicine | DX: R31.0 Gross hematuria (principal); Z12.5 Encounter for screening for malignant neoplasm of prostate; N40.0 Benign prostatic hyperplasia without lower urinary tract symptoms ==

== ENCOUNTER 2023-08-10 13:36 | Observation (INO) | payer MEDICARE, OTHER ==
[~2023-08-10] VITALS: Ht 177.8 cm; Wt 82.9 kg
[2023-08-10 16:13] LABS: BASO % 0.6 % (0.0-1.0); EOS # 0.5 10^3/uL (0.0-0.5); EOS % 6.3 % (0.0-3.0); HEMATOCRIT 40.2 % (42.0-52.0); HEMOGLOBIN 12.8 g/dl (13.5-17.5); LYMPH # 1.3 10^3/uL (1.5-5.0); LYMPH % 18.5 % (24.0-44.0); MEAN CORPUSCULAR HEMOGLOBIN 31.4 pg (27.0-33.0); MEAN CORPUSCULAR HGB CONC 31.8 g/dl (32.0-36.5); MEAN CORPUSCULAR VOLUME 98.5 fl (80.0-96.0); MONO # 0.8 10^3/uL (0.0-0.8); MONO % 11.1 % (2.0-8.0); NEUTROPHILS # 4.5 10^3/uL (1.5-8.5); NEUTROPHILS % 63.2 % (36.0-66.0); PLATELET COUNT, AUTOMATED 215 10^3/uL (150-450); RED BLOOD COUNT 4.08 10^6/uL (4.30-6.10); WHITE BLOOD COUNT 7.1 10^3/uL (4.0-10.0)
[2023-08-10 16:25] LABS: INR 1.51; PARTIAL THROMBOPLASTIN TIME 37.3 SECONDS (24.8-34.2); PROTHROMBIN TIME 17.8 SECONDS (12.5-14.5)
[2023-08-10 16:44] LABS: ALBUMIN 3.4 G/DL (3.2-5.2); BILIRUBIN,DIRECT 0.1 MG/DL (<0.4); BILIRUBIN,TOTAL 0.3 MG/DL (0.3-1.2)
[2023-08-10] MEDS: ASPIRIN 325 MG TAB PO ONE (16:48)
[2023-08-10 17:23] LABS: CALCIUM LEVEL 9.5 MG/DL (8.3-10.6); CREATININE FOR GFR 2.19 MG/DL (0.70-1.30); POTASSIUM SERUM 5.3 MMOL/L (3.5-5.1)
[2023-08-10] MEDS ORDERED: GABA-282 PO (22:37)
[2023-08-10] MEDS ORDERED: HYDR-4514 PO (22:37)
[2023-08-10] MEDS ORDERED: ACET-1349 PO (22:38)
[2023-08-10] MEDS ORDERED: NARC1SPR (22:38)
[2023-08-10] MEDS ORDERED: METO1TAB32 PO (22:38)
[2023-08-10] MEDS ORDERED: FINA5TAB2 PO (22:38)
[2023-08-10] MEDS ORDERED: HOME MED LIST COMPLETE! XX SCH (22:45)
[2023-08-10] MEDS ORDERED: CALCIUM CARBONATE 500 MG CHEW U/D PO PRN ×2 (23:25→23:50)
[2023-08-10] MEDS ORDERED: ACETAMINOPHEN TAB 650MG DOSE (2X325MG) PO PRN ×2 (23:25→23:50)
[2023-08-10] MEDS ORDERED: HEPARIN SOD (PORCINE) 5000UNITS/ML 1ML VIAL/SYRINGE SC SCH (23:25)
[2023-08-10] MEDS ORDERED: ANEXSIA, NORCO 7.5MG/325MG TABLET(HYDROCODONE/APAP) PO PRN ×2 (23:25→23:50)
[2023-08-11] VITALS (12 sets, daily range): BP systolic 129–150; BP diastolic 57–70; TEMP 96.4–97.6; O2SAT 97–100
[2023-08-11] MEDS ORDERED: GLUCAGON INJ 1MG VIAL SC PRN (00:20)
[2023-08-11] MEDS ORDERED: GLUCOSE 4 GM CHEW PO PRN (00:20)
[2023-08-11] MEDS ORDERED: DEXTROSE 50% 50ML SYRINGE IV PRN (00:20)
[2023-08-11] MEDS: INSULIN LISPRO (NovoLOG) PER UNIT SC SCH ×2 (07:30→20:21)
[2023-08-11 08:59] LABS: HEMATOCRIT 38.8 % (42.0-52.0); HEMOGLOBIN 12.5 g/dl (13.5-17.5); MEAN CORPUSCULAR HEMOGLOBIN 31.1 pg (27.0-33.0); MEAN CORPUSCULAR HGB CONC 32.2 g/dl (32.0-36.5); MEAN CORPUSCULAR VOLUME 96.5 fl (80.0-96.0); PLATELET COUNT, AUTOMATED 192 10^3/uL (150-450); RED BLOOD COUNT 4.02 10^6/uL (4.30-6.10); WHITE BLOOD COUNT 6.1 10^3/uL (4.0-10.0)
[2023-08-11] MEDS ORDERED: PANTOPRAZOLE 40MG TAB (PROTONIX) PO SCH (09:00)
[2023-08-11] MEDS ORDERED: ASPIRIN 81MG CHEW TABLET PO SCH (09:00)
[2023-08-11] MEDS ORDERED: DOCUSATE SODIUM 100MG CAPSULE PO SCH (09:00)
[2023-08-11] MEDS: PANTOPRAZOLE 40MG TAB (PROTONIX) PO SCH (09:20)
[2023-08-11] MEDS: DOCUSATE SODIUM 100MG CAPSULE PO SCH (09:20)
[2023-08-11] MEDS: ASPIRIN 81MG CHEW TABLET PO SCH (09:22)
[2023-08-11] MEDS: HEPARIN SOD (PORCINE) 5000UNITS/ML 1ML VIAL/SYRINGE SC SCH (09:22)
[2023-08-11 09:32] LABS: PROCALCITONIN 0.11 ng/ml
[2023-08-11 09:33] LABS: ALBUMIN 3.1 G/DL (3.2-5.2); BILIRUBIN,TOTAL 0.5 MG/DL (0.3-1.2); CALCIUM LEVEL 9.2 MG/DL (8.3-10.6); CHOLESTEROL RISK RATIO 5.11 (<5); CREATININE FOR GFR 1.82 MG/DL (0.70-1.30); GLOMERULAR FILTRATION RATE 45.8 (>35); HDL CHOLESTEROL 30.3 MG/DL (>40); LDL CHOLESTEROL 83.7 MG/DL (<100); MAGNESIUM LEVEL 1.9 MG/DL (1.8-2.4); NON-HDL-C 124.7 MG/DL; POTASSIUM SERUM 4.8 MMOL/L (3.5-5.1); TOTAL PROTEIN 6.3 G/DL (5.7-8.2)
[2023-08-11] MEDS: TORSEMIDE 20 MG TAB PO SCH (14:20)
[2023-08-11] MEDS: GABAPENTIN 300 MG CAP PO SCH (18:28)
[2023-08-11] MEDS: FERROUS SULFATE 325MG TAB PO SCH (20:23)
[2023-08-11] MEDS: FINASTERIDE 5MG TAB PO SCH (20:23)
[2023-08-11] MEDS: ATORVASTATIN 20 MG TAB PO SCH (20:23)
[2023-08-11] MEDS ORDERED: FINASTERIDE 5MG TAB PO SCH (21:00)
[2023-08-11] MEDS ORDERED: METOPROLOL SUCC *XL* 25MG TAB (TopROL *XL*) PO SCH (21:00)
[2023-08-11] MEDS ORDERED: FERROUS SULFATE 325MG TAB PO SCH (21:00)
[2023-08-11] MEDS ORDERED: GABAPENTIN 300 MG CAP PO SCH (21:00)
[2023-08-12] VITALS (14 sets, daily range): BP systolic 114–121; BP diastolic 55–56; TEMP 97–97.4; O2SAT 97–100
[2023-08-12] MEDS: ASPIRIN 81MG CHEW TABLET PO SCH (09:36)
[2023-08-12] MEDS: GABAPENTIN 100 MG CAP PO SCH (09:36)
[2023-08-12] MEDS ORDERED: GABA-1171 PO (12:25)
[2023-08-13 07:32] LABS: T P ELECTROPHORESIS SO 6.8 g/dL (6.1-8.1)
[2023-08-16 07:47] LABS: ALBUMIN SPEP 3.6 g/dL (3.8-4.8); ALPHA-1-GLOBULINS SO 0.3 g/dL (0.2-0.3); ALPHA-2-GLOBULINS SO 0.8 g/dL (0.5-0.9); BETA 2 GLOBULIN 0.4 g/dL (0.2-0.5); BETA-GLOBULIN SO 0.4 g/dL (0.4-0.6); GAMMA GLOBULINS SO 1.3 g/dL (0.8-1.7); SPEP ABN PROTEIN BAND 1 0.4 g/dL (NONE DETECTED)
[2023-08-17 00:37] LABS: COPPER PLASMA 147 mcg/dL (70-175)
[2023-08-17 08:17] LABS: VITAMIN B6,PYRIDOXAL PHOSPHATE 3.7 ng/mL (2.1-21.7)
[2023-08-17 16:56] LABS: VITAMIN B1 LEVEL WHOLE BLOOD 115 nmol/L (78-185)
== END 2023-08-12 14:15 | disposition home or self-care (01) ==
LOC: M ED 13:36 → M ED INP 22:50 → INTOOBSV 22:50 → M PCU 08-11 11:55
PROVIDERS: ADMIT Family Medicine; ATTEND Family Medicine
DX: R41.82 Altered mental status, unspecified (principal); G45.9 Transient cerebral ischemic attack, unspecified; I10 Essential (primary) hypertension; E11.40 Type 2 diabetes mellitus with diabetic neuropathy, unspecified; I25.10 Atherosclerotic heart disease of native coronary artery without angina pectoris; I25.2 Old myocardial infarction; N18.30 Chronic kidney disease, stage 3 unspecified; Z79.899 Other long term (current) drug therapy
CPT/HCPCS: 36415; 70450; 70544; 70547; 70551; 71045; 76775; 80047; 80048; 80053; 80061; 80076; 81001; 82525; 82607; 83735; 84145; 84155; 84165; 84207; 84425; 84443; 85025; 85027; 85610; 85730; 93005; 93041; 93246; 93306; 94760; 96372; 97116; 97161; 97165; 97530; 99285; G0378; J1815

== ENCOUNTER → 2023-08-12 | Outpatient (CLI) | payer MEDICARE, OTHER ==
[~2023-08-12] MED LIST changes: +ACET-1349 PO; +FINA5TAB2 PO; +GABA-1171 PO; +GABA-282 PO; +HYDR-4514 PO; +METO1TAB32 PO; +NARC1SPR
== END ==
LOC: M EKG 14:19
PROVIDERS: ATTEND Student in an Organized Health Care Education/Training Program
DX: G45.9 Transient cerebral ischemic attack, unspecified (principal)

== ENCOUNTER → 2024-05-30 | Outpatient (CLI) | payer MEDICARE, OTHER ==
[~2024-05-30] MED LIST changes: +GABA-1172 PO; -GABA-282 PO
[2024-05-30 13:49] LABS: BASO # 0.1 10^3/uL (0.0-0.2); BASO % 0.7 % (0.0-1.0); EOS # 0.4 10^3/uL (0.0-0.5); EOS % 5.8 % (0.0-3.0); HEMATOCRIT 39.5 % (42.0-52.0); HEMOGLOBIN 12.4 g/dl (13.5-17.5); LYMPH # 1.2 10^3/uL (1.5-5.0); MEAN CORPUSCULAR HEMOGLOBIN 30.8 pg (27.0-33.0); MEAN CORPUSCULAR HGB CONC 31.4 g/dl (32.0-36.5); MONO # 0.7 10^3/uL (0.0-0.8); MONO % 9.8 % (2.0-8.0); NEUTROPHILS # 4.9 10^3/uL (1.5-8.5); NEUTROPHILS % 67.3 % (36.0-66.0); PLATELET COUNT, AUTOMATED 258 10^3/uL (150-450); RED BLOOD COUNT 4.03 10^6/uL (4.30-6.10); WHITE BLOOD COUNT 7.2 10^3/uL (4.0-10.0)
[2024-05-30 14:09] LABS: HEMOGLOBIN A1c 6.1 % (4.0-6.0)
[2024-05-30 14:14] LABS: ALBUMIN 3.4 G/DL (3.2-5.2); BILIRUBIN,TOTAL 0.4 MG/DL (0.3-1.2); CALCIUM LEVEL 8.9 MG/DL (8.3-10.6); CHOLESTEROL RISK RATIO 4.77 (<5); CREATININE FOR GFR 2.17 MG/DL (0.70-1.30); GLOMERULAR FILTRATION RATE 28.8 (>35); HDL CHOLESTEROL 29.5 MG/DL (>40); LDL CHOLESTEROL 78.9 MG/DL (<100); NON-HDL-C 111.5 MG/DL; TOTAL PROTEIN 7.4 G/DL (5.7-8.2)
== END ==
LOC: M LAB 12:41
PROVIDERS: ATTEND Family Medicine
DX: Z00.00 Encounter for general adult medical examination without abnormal findings (principal); G31.84 Mild cognitive impairment of uncertain or unknown etiology; G89.29 Other chronic pain; Z79.1 Long term (current) use of non-steroidal anti-inflammatories (NSAID); Z79.899 Other long term (current) drug therapy; Z79.82 Long term (current) use of aspirin; Z79.891 Long term (current) use of opiate analgesic; F17.210 Nicotine dependence, cigarettes, uncomplicated

== ENCOUNTER → 2024-06-19 | Outpatient (REF) | payer MEDICARE, OTHER ==
[2024-06-19 14:26] LABS: APPEARANCE, URINE MANUAL TURBID (CLEAR)
[2024-06-19 14:27] LABS: COLOR, URINE MANUAL RED (YELLOW)
[2024-06-19 14:28] LABS: LEUKOCYTE ESTERASE, URINE MAN TRACE (NEGATIVE); SPECIFIC GRAVITY,URINE MANUAL 1.015 (1.002-1.035)
[2024-06-19 14:29] LABS: BILIRUBIN, URINE MANUAL NEGATIVE (NEGATIVE); GLUCOSE, URINE (UA) MANUAL NEGATIVE (NEGATIVE); KETONE, URINE MANUAL 1+ mg/dL (NEGATIVE); PROTEIN, URINE MANUAL 3+ mg/dL (NEGATIVE); UROBILINOGEN, URINE MANUAL NORMAL (NORMAL)
[2024-06-19 14:30] LABS: BLOOD URINE MANUAL POSITIVE (NEGATIVE); NITRITE, URINE MANUAL NEGATIVE (NEGATIVE)
[2024-06-19 14:32] LABS: BACTERIA, URINE NONE SEEN; HYALINE CAST, URINE NONE SEEN /lpf (0-1); RBC, URINE TNTC /hpf (0-3); SQUAMOUS EPITHELIAL CELL URINE NONE SEEN /hpf (SMALL AMT)
== END ==
LOC: M SMT 13:07
PROVIDERS: ATTEND Urology
DX: N40.0 Benign prostatic hyperplasia without lower urinary tract symptoms (principal)

== ENCOUNTER → 2024-11-15 | Outpatient (REF) | payer MEDICARE, OTHER ==
[2024-11-15 16:34] LABS: APPEARANCE, URINE CLEAR (CLEAR); BACTERIA, URINE AUTO NEGATIVE (NEGATIVE); BILIRUBIN, URINE AUTO NEGATIVE (NEGATIVE); BLOOD, URINE BLOOD 2+ (NEGATIVE); GLUCOSE, URINE (UA) AUTO NEGATIVE (NEGATIVE); KETONE, URINE AUTO NEGATIVE (NEGATIVE); LEUKOCYTE ESTERASE, URINE AUTO NEGATIVE (NEGATIVE); MUCUS, URINE SMALL (NEGATIVE); NITRITE, URINE AUTO NEGATIVE (NEGATIVE); PROTEIN, URINE AUTO 1+ mg/dL (NEGATIVE); RBC, URINE AUTO 9 /HPF (0-3); SPECIFIC GRAVITY URINE AUTO 1.014 (1.002-1.035); SQUAMOUS EPITHELIAL CELL UR AU 1 /HPF (0-6); UROBILINOGEN, URINE AUTO 0.2 mg/dL (0.0-2.0); WBC, URINE AUTO 3 /HPF (0-3)
== END ==
LOC: M SMT 15:00
PROVIDERS: ATTEND Urology
DX: N40.0 Benign prostatic hyperplasia without lower urinary tract symptoms (principal)

== ENCOUNTER → 2025-01-30 | Outpatient (CLI) | payer MEDICARE, OTHER ==
[2025-01-30 12:54] LABS: BASO # 0.1 10^3/uL (0.0-0.2); BASO % 0.7 % (0.0-1.0); EOS # 0.5 10^3/uL (0.0-0.5); EOS % 5.6 % (0.0-3.0); LYMPH # 1.6 10^3/uL (1.5-5.0); LYMPH % 18.2 % (24.0-44.0); MONO # 1.0 10^3/uL (0.0-0.8); MONO % 11.1 % (2.0-8.0); NEUTROPHILS # 5.6 10^3/uL (1.5-8.5); NEUTROPHILS % 63.2 % (36.0-66.0); PLATELET COUNT, AUTOMATED 265 10^3/uL (150-450)
[2025-01-30 14:00] LABS: ALT/SGPT 12.0 U/L (7.0-40); AST/SGOT 20.0 U/L (<34); CALCIUM LEVEL 8.4 MG/DL (8.3-10.6); CARBON DIOXIDE LEVEL 29.0 MMOL/L (20-31); CHLORIDE LEVEL 105.0 MMOL/L (98-107); CHOLESTEROL LEVEL 155.0 MG/DL (<200); CHOLESTEROL RISK RATIO 4.04 (<5); CREATININE FOR GFR 2.01 MG/DL (0.70-1.30); GLOMERULAR FILTRATION RATE 31.5 (>35); LDL CHOLESTEROL 82.5 MG/DL (<100); NON-HDL-C 116.7 MG/DL; POTASSIUM SERUM 4.6 MMOL/L (3.5-5.1); SODIUM LEVEL 143.0 MMOL/L (136-145); TRIGLYCERIDES LEVEL 171.0 MG/DL (<150)
[2025-01-30 14:05] LABS: ESTIMATED AVERAGE GLUCOSE 128.0 MG/DL (60-110)
== END ==
LOC: M LAB 10:37
PROVIDERS: ATTEND Family Medicine
DX: Z00.00 Encounter for general adult medical examination without abnormal findings (principal); D64.9 Anemia, unspecified; E78.5 Hyperlipidemia, unspecified

== ENCOUNTER → 2025-01-30 | Outpatient (CLI) | payer MEDICARE, OTHER ==
[2025-01-30 13:48] LABS: ALT/SGPT 12.0 U/L (7.0-40); AST/SGOT 20.0 U/L (<34); CALCIUM LEVEL 8.6 MG/DL (8.3-10.6); CARBON DIOXIDE LEVEL 29.0 MMOL/L (20-31); CHLORIDE LEVEL 106.0 MMOL/L (98-107); CHOLESTEROL LEVEL 153.0 MG/DL (<200); CHOLESTEROL RISK RATIO 3.78 (<5); CREATININE FOR GFR 2.03 MG/DL (0.70-1.30); GLOMERULAR FILTRATION RATE 31.2 (>35); LDL CHOLESTEROL 77.0 MG/DL (<100); NON-HDL-C 112.6 MG/DL; POTASSIUM SERUM 4.7 MMOL/L (3.5-5.1); SODIUM LEVEL 143.0 MMOL/L (136-145); TRIGLYCERIDES LEVEL 178.0 MG/DL (<150)
== END ==
LOC: M CARPUL 10:26
PROVIDERS: ATTEND Internal Medicine Cardiovascular Disease
DX: Z00.00 Encounter for general adult medical examination without abnormal findings (principal); I25.10 Atherosclerotic heart disease of native coronary artery without angina pectoris; D64.9 Anemia, unspecified; E78.5 Hyperlipidemia, unspecified; Z79.899 Other long term (current) drug therapy